=== PATIENT | female | born 1975 | race Caucasian/White ===

== ENCOUNTER 2016-12-02 20:58 | Emergency (ER) | payer OTHER, MEDICAID ==
[~2016-12-02] VITALS: Ht 167.6 cm; Wt 77.1 kg
[~2016-12-02 20:58] MED LIST: ATEN25TA PO; BIPAP INH; BISA10SU PR; DULC10SU2 PR; OXYGEN; SENN8.6T7 PO; SENO8.6T2 PO; TYLE325T5 PO; no home medications
--- NOTE | 2016-12-02 22:40 | REPUSA ---
CLINICAL HISTORY: Edema. COMMENTS: Real time sonography with duplex doppler of the right lower extremity was performed with attention to the major deep venous structures. Evaluation reveals the right common femoral, superficial femoral and popliteal veins to be completely compressible without intraluminal thrombus. There is normal spontaneous phasic flow and augmentation . The greater saphenous/common femoral vein junction is patent. IMPRESSION: No evidence of DVT in right lower extremity. Thank you for your kind referral of this patient.
[2016-12-03 00:18] VITALS: BP 140/90
--- NOTE | 2016-12-03 09:37 | REP ---
RIGHT KNEE: AP and lateral views of the right knee are performed. There is a nondisplaced fracture of the distal femur medially. There is no dislocation. There is a moderate joint effusion. IMPRESSION: Nondisplaced fracture distal femur. Signed by Awais Patterson MD 12/03/2016 03:52 P
== END 2016-12-03 01:38 | disposition home or self-care (01) ==
LOC: EDBD 20:58 → M ED 22:44
DX: M25.461 Effusion, right knee (principal); I47.1 Supraventricular tachycardia; G80.9 Cerebral palsy, unspecified; S72.401A Unspecified fracture of lower end of right femur, initial encounter for closed fracture; X58.XXXA Exposure to other specified factors, initial encounter; Y92.9 Unspecified place or not applicable; Y93.9 Activity, unspecified; Y99.9 Unspecified external cause status; Z79.899 Other long term (current) drug therapy

== ENCOUNTER → 2017-01-06 | Outpatient (CLI) | payer OTHER, MEDICAID ==
--- NOTE | 2017-01-08 14:22 | DEXA ---
AP SPINE L1 - L4 1.219 0.2 -0.1 LT FEMUR TOTAL 0.560 -3.6 -3.5 RT FEMUR TOTAL History of fracture TOTAL BODY TOTAL OTHER DUAL FEMUR FRAX* ASSESSMENT Risk factors: History of adult fracture. 10 year probability of fracture Major osteoporotic fracture 28.1 % Hip fracture 22.6 % COMMENTS: Normal bone densitometry of the spine. There is osteoporosis of the left hip. FOLLOW-UP: Recommendation for the next bone density exam: 2 years. HILDA
== END ==
LOC: M WHC 12:44
DX: M16.11 Unilateral primary osteoarthritis, right hip (principal)

== ENCOUNTER 2018-11-25 10:06 | Inpatient (IN) | payer OTHER, MEDICAID ==
[~2018-11-25] VITALS: Ht 170.2 cm; Wt 85.2 kg
[2018-11-25] VITALS (11 sets, daily range): BP systolic 72–100; BP diastolic 39–61; O2SAT 93
[~2018-11-25 10:06] MED LIST changes: -SENO8.6T2 PO; +SENO8.6T5 PO
[2018-11-25] MEDS ORDERED: IPRATROPIUM 0.5MG/ALBUTEROL 2.5MG INH SOL UD 3ML (DUONEB)(J7620) NEB ONE (11:15)
[2018-11-25 11:33] LABS: BASO % 0.2 % (0.0-1.0); EOS % 0.3 % (0.0-3.0); HEMATOCRIT 49.6 % (36.0-47.0); HEMOGLOBIN 14.9 g/dl (12.0-15.5); LYMPH # 0.3 10^3/uL (1.5-4.5); LYMPH % 3.6 % (24.0-44.0); MEAN CORPUSCULAR HEMOGLOBIN 29.7 pg (27.0-33.0); MEAN CORPUSCULAR VOLUME 98.8 fl (80.0-96.0); MONO # 0.5 10^3/uL (0.0-0.8); MONO % 5.6 % (0.0-5.0); NEUTROPHILS # 8.6 10^3/uL (1.8-7.7); PLATELET COUNT, AUTOMATED 125 10^3/uL (150-450); RED BLOOD COUNT 5.02 10^6/uL (4.00-5.40); WHITE BLOOD COUNT 9.5 10^3/uL (4.0-10.0)
[2018-11-25 11:41] LABS: INR 0.88
[2018-11-25 11:49] LABS: ALBUMIN 3.1 GM/DL (3.2-5.2); ALT/SGPT 84 U/L (12-78); BILIRUBIN,DIRECT < 0.1 MG/DL (0.0-0.2); BILIRUBIN,TOTAL 0.2 MG/DL (0.2-1.0); BLOOD UREA NITROGEN 22 MG/DL (7-18); CALCIUM LEVEL 8.8 MG/DL (8.5-10.1); CARBON DIOXIDE LEVEL 39 MEQ/L (21-32); CHLORIDE LEVEL 99 MEQ/L (98-107); CPK CREATINE PHOSPHOKINASE 54 U/L (26-192); CREATININE FOR GFR 0.43 MG/DL (0.55-1.30); GLOMERULAR FILTRATION RATE > 60.0 (>58); GLUCOSE, FASTING 113 MG/DL (70-100); MB/CK RELATIVE INDEX 7.41 (< OR =4); NT-PRO BNP 123 PG/ML (<125); POTASSIUM SERUM 4.9 MEQ/L (3.5-5.1); SODIUM LEVEL 141 MEQ/L (136-145); THYROXINE (T4) 10.4 UG/DL (4.5-12.0); TOTAL PROTEIN 6.9 GM/DL (6.4-8.2); TROPONIN I < 0.02 NG/ML (< 0.10)
[2018-11-25 11:53] LABS: ABG BASE EXCESS 10.5 (-2.0-2.0); ABG HCO3 45.2 MEQ/L (22.0-26.0); ABG PARTIAL PRESSURE O2 86.2 mmHg (75.0-100.0); ABG STANDARD HCO3 34.2 MEQ/L (22.0-26.0); ABG TOTAL CO2 49.2 MEQ/L (22.0-29.0); ABG pH (ARTERIAL) 7.162 UNITS (7.350-7.450)
[2018-11-25 11:54] LABS: ABG PARTIAL PRESSURE CO2 129.2 mmHg (35.0-45.0)
[2018-11-25] MEDS ORDERED: SENN-23 PO (12:15)
[2018-11-25] MEDS ORDERED: BISA10SU4 PR (12:15)
[2018-11-25] MEDS ORDERED: PIPERACILLIN/TAZOBACTAM SOD 4.5 GM in D5W MINI-BAG PLUS 50 ML IV ONE (13:00)
[2018-11-25 13:34] LABS: ABG BASE EXCESS 8.6 (-2.0-2.0); ABG HCO3 42.5 MEQ/L (22.0-26.0); ABG PARTIAL PRESSURE O2 85.8 mmHg (75.0-100.0); ABG STANDARD HCO3 32.4 MEQ/L (22.0-26.0); ABG TOTAL CO2 46.2 MEQ/L (22.0-29.0)
[2018-11-25 13:42] LABS: ABG pH (ARTERIAL) 7.171 UNITS (7.350-7.450)
[2018-11-25] MEDS ORDERED: VANCOMYCIN HCL 1,000 MG, VIAL MATE ADAPTER 1 EACH in D5W 250 ML IV ONE (14:00)
[2018-11-25] MEDS ORDERED: ALBUTEROL SULFATE 2.5 MG/0.5 ML INH NEB SOLN NEB PRN (14:00)
[2018-11-25] MEDS ORDERED: KCL 20MEQ IN D5/0.45NS 1000ML 1,000 ML IV SCH (14:00)
--- NOTE | 2018-11-25 14:27 | CCN ---
DATE: 11/25/2018 START TIME: 1320 hours STOP TIME: 1356 hours I was asked to attend Eunice Judd here in the ER. Patient has been examined and chart reviewed, and I have spoken at length not only with the ER with but with her father at the bedside. In essence, this is a 42-year-old female with known mental retardation. She has significant chronic hypoxemic and hypercapnic respiratory failure with chronic aspiration. She has a chronically elevated left hemidiaphragm. She is not mobile at home. She has been maintained on noninvasive support intermittently for several years now. Last hospitalization was around 2014. At that time, her baseline CO2 was in the 60s. She was last seen in the outpatient setting by pulmonary about a year ago. At that point in time, noninvasive support was used at bedtime and with naps and with anytime during the day if she seemed to be more sleepy or having involuntary twitching as blood gases were difficult to obtain. Her father says she has been in her usual health until this morning when she was difficult to arouse and was quite cyanotic. He has a pulse ox at home that ready in the 40s. She was brought in by EMS. On arrival, she had a blood gas done that showed pH of 7.162, pCO2 of 129.2, pO2 of 86. She was placed on noninvasive support on her home settings of 23/06. Currently has an FiO2 between 50 and 70%. Repeat blood gas shows pH of 7.17, pCO2 down to 119, and pO2 of 85. When she arrived she was completely unresponsive. At this point, she does open her eyes to voice. He father says this is much more interactive than she was at home, but usually is more interactive than this. Historically he has refused to make any decision regarding intubation, mechanical ventilation or tracheostomy, although he has stated in the past he did not want tracheostomy but refused to make decisions regarding intubation. I discussed again with him today. At this point, he still refuses to give me a decision either way, would like to see how the next several hours go. No obvious fever at home. He says yesterday she was acting her usual self. He thinks that frequently at night she gets her noninvasive mask off at home and that he fears that this is what happened during the night last night. Most recent laboratories show a white blood cell count of 9.5, hemoglobin 14.9, platelet count of 125,000, 90% segs, no bands. Sodium 141, K of 4.9, chloride 99, CO2 39, BUN 22, creatinine 0.43, glucose 113, troponin 0.02, coag studies unremarkable. Chest x-ray shows poor inspiration. I cannot rule out a right hilar infiltrate. Chronically elevated left hemidiaphragm. On exam, she does open her eyes to voice. Blood pressure between 90 and 100 systolic. Heart rate 70s to 80s with a sinus mechanism. Respiratory rate 18-22. Currently moving tidal volumes between 270 and 350 mL on her current noninvasive settings. HEENT: Shows pupils do react. She has a noninvasive mask in place. Trachea is in the midline. Membranes are moist. CHEST: Shows markedly diminished but symmetric expansion. There are some rhonchi. They do not completely clear. Breath sound intensity much more diminished at the left base. CARDIAC EXAM: Distant but regular. Peripheral pulses diminished. ABDOMEN: Obese, soft with active bowel sounds. No masses. EXTREMITIES: Show no obvious cyanosis or clubbing. She has changes of the lower extremities consistent with her being bed ridden. NEUROLOGIC: Opens her eyes to voice, but does not otherwise interact. The most pressing problems requiring my immediate presence at the bedside: 1. Acute on chronic respiratory failure, both hypoxemic and hypercapnic. 2. Question aspiration. 3. Mental disability. At this point, as eluded to above, her father refuses to make a decision regarding further interventions. I will repeat a blood gas in several hours. If it is moving in the right direction then certainly he has once again managed to not have to make a decision. However, if it is any worse I will need an absolute decision from him at that time regarding what he wants me to do regarding intubation and mechanical ventilation. Certainly any decision regarding tracheostomy can be made at a later date. I am in agreement with empiric antimicrobials as well as IV fluids. She will be kept nothing by mouth for now. Her father says she does eat a regular diet for the most part. In view of the above, she is critically ill. Her prognosis is guarded at best. I left the bedside at 1356 hours. 36 minutes of critical care time were delivered at the bedside, not including procedures.
--- NOTE | 2018-11-25 15:00 | REP ---
PORTABLE AP VIEW OF THE CHEST: The present study is compared to that of 09/25/2015. There is a very large left diaphragmatic hernia with large bowel extending up to proximal one-third of the left lung with areas of atelectasis and probably medially. In the right lung, middle lobe is a homogeneous density. The remaining cardiomediastinal structures, lungs, and diaphragm are unremarkable. IMPRESSION: 1. Right middle lobe pneumonia. 2. Large progressive left diaphragmatic hernia as described. Atelectasis of the left lung, particularly in the upper lobe. Electronically Signed by Moris Page MD 11/25/2018 03:37 P
[2018-11-25] MEDS: ALBUTEROL SULFATE 2.5 MG/0.5 ML INH NEB SOLN NEB SCH ×2 (15:19→20:44)
[2018-11-25] MEDS ORDERED: D5W/0.45% SODIUM CHLORIDE 1,000 ML IV SCH (15:36)
[2018-11-25] MEDS ORDERED: ACETAMINOPHEN TAB 650MG DOSE (2X325MG) PO PRN (15:45)
[2018-11-25] MEDS ORDERED: VANCOMYCIN HCL 750 MG, VIAL MATE ADAPTER 1 EACH in D5W 250 ML IV SCH (15:45)
[2018-11-25 16:07] LABS: MAGNESIUM LEVEL 2.3 MG/DL (1.8-2.4)
--- NOTE | 2018-11-25 17:38 | ECGEPIP ---
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
[2018-11-25] MEDS ORDERED: VANCOMYCIN HCL 1,000 MG, VIAL MATE ADAPTER 1 EACH in D5W 250 ML IV SCH (18:00)
[2018-11-25] MEDS ORDERED: INFLUENZA QUADRIVALENT PF VACCINE 0.5ML SYRINGE (90686) IM PRN (18:15)
[2018-11-25 18:22] LABS: ABG BASE EXCESS 7.9 (-2.0-2.0); ABG HCO3 38.1 MEQ/L (22.0-26.0); ABG O2 SATURATION 87.9 % (95.0-99.0); ABG STANDARD HCO3 31.4 MEQ/L (22.0-26.0); ABG TOTAL CO2 40.6 MEQ/L (22.0-29.0); ABG pH (ARTERIAL) 7.293 UNITS (7.350-7.450)
[2018-11-25 18:23] LABS: ABG PARTIAL PRESSURE CO2 80.5 mmHg (35.0-45.0)
[2018-11-25] MEDS ORDERED: NS 500 ML IV ONE (20:00)
[2018-11-25] MEDS ORDERED: PIPERACILLIN/TAZOBACTAM SOD 4.5 GM in D5W MINI-BAG PLUS 50 ML IV SCH (20:00)
--- NOTE | 2018-11-25 21:07 | HPE ---
DATE OF ADMISSION: 11/25/2018 PRIMARY CARE PROVIDER: Dr. Rabia Waddell at [facility] PREPRESS OPERATOR: Dr. Hutchinson MACHINE OPERATORS: Dr. Monroe HISTORY OF PRESENT ILLNESS: Ms. Judd is a 42-year-old female with cerebral palsy and mental retardation since she was 1 years old after she had strep infection that led to cognitive and physical decline. Her father is in the room. Currently, at the time of admission, the patient is obtunded more so than her baseline, per her father, and most of the information is provided by her father, who is her primary external grinder tool at home. 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 As of this morning, when the father awoke, he found his daughter appearing hypoxic and blue with the BiPAP only covering the edge of her mouth and she had essentially pulled apart the machinery with it. She was nonresponsive and apparently her pulse oximetry was at 40% at home. He called emergency medical services (EMS) and her oxygen levels pablo to the 90s after being placed on oxygen. Currently in the emergency room, her initial ABG revealed severe hypercapnia with a PCO2 of 129 and a pH of 7.1. Emergency room spoke with project development manager, Dr. Child, who placed her on BiPAP and repeat ABG improved mildly to pH of 7.1 and PCO2 of 119. Per emergency room report, there was no plan to intubate the patient and pulmonology wanted to continue monitoring in intensive care unit (ICU) on BiPAP. Of note, her respiratory panel in the emergency room was also positive for respiratory syncytial virus (RSV), as well as a chest x-ray revealing right middle lobe pneumonia and a large left diaphragmatic hernia and atelectasis of the left upper lung. At the time of the admission, per the father, she is currently slightly more awake than she was at home but currently still not at her baseline, which consists of responding to her name and able to track visually who is speaking with her. She will be admitted to the intensive care unit (ICU) with close monitoring. PAST MEDICAL HISTORY: 1. Chronic hypoxic respiratory failure, chronically on 2 liters nasal cannula. 2. Cerebral palsy since age 1 secondary to strep infection. 3. SVT, follows with Dr. Hutchinson. 4. Chronic decubitus ulcer, status post flap closure. 5. History of aspiration pneumonia. HOME MEDICATIONS: - Tylenol - atenolol 25 mg by mouth at night - bisacodyl ALLERGIES: None. SOCIAL HISTORY: She is mentally retarded and lives at home under the care of her father. No active tobacco or alcohol use. REVIEW OF SYSTEMS: Unobtainable given the patient's obtunded and lethargic state and baseline mental retardation; however, the father says the patient has had rhinorrhea and "tickle" in her throat over the past few days, and obtunded as of this morning. PHYSICAL EXAMINATION: VITAL SIGNS: Temperature 97, pulse 76, respirations 18, blood pressure 100/61, MAP of 74, pulse oximetry 90% on BiPAP with an FiO2 of 80 and an IPAP/EPAP of 20/8. GENERAL: Resting comfortably in bed. Is lethargic, nonverbal. Is able to open her eyes to sternal rub. Otherwise, limited interaction and unable to participate in physical examination. HEENT: Normocephalic, atraumatic. No pharyngeal exudates or edema. NECK: Supple without any appreciable jugular venous distention (JVD). CARDIAC: Regular rate and rhythm. No appreciable murmurs. LUNGS: Diffuse rhonchi throughout. No appreciable rales. There is poor inspiratory effort. She is currently on BIPAP. ABDOMEN: Obese, nontender, nondistended. Benign examination. EXTREMITIES: The patient has clawing of her digits of bilateral hands, as well as puffiness of bilateral feet, which her father states is chronic due to her being bed ridden. No appreciable peripheral edema. LABORATORIES: WBC 9.5, hemoglobin and hematocrit 14.9 and 49.6, platelets 125. Electrolytes normal. BUN and creatinine 22 and 0.43, lactic acid 0.9, AST and ALT 46/84, alkaline phosphatase 148. Cardiac markers negative. TSH 1.1. ABG on admission showed pH 7.162 and up to 7.171 after 3 hours on BiPAP, PCO2 on admission 129, down to 119 after 3 hours of BiPAP. Blood cultures pending. Respiratory panel positive for RSV. Chest x-ray reveals right middle lobe pneumonia and large left diaphragmatic hernia with bowel extending up to proximal one-third of the left lung, along with atelectasis. ASSESSMENT AND PLAN: 1. Respiratory. The patient is in acute on chronic respiratory failure with hypercarbia and hypoxia. The patient, at baseline, is on 2 liters nasal cannula during the daytime and BiPAP at night. She was noted to be saturating in the 40s, per father, and severe hypercapnic on admission ABG. This is likely multifactorial secondary to noncompliance with BiPAP, as she had pulled off her mask overnight. Also, likely secondary to positive RSV, as well as positive pneumonia on admission. Pulmonary consulted, appreciated Dr. Child's input. Currently, he would like to continue monitoring on BiPAP and repeat ABGs. We will start her on ceftriaxone and azithromycin and treat as community acquired pneumonia, given her infiltration on imaging, as well as father mentioning that she has had a dry cough and rhinorrhea over the past days, as well as her being a high risk patient and bedridden. Continue close monitoring. Of note, the patient was intubated in 2013 due to similar presentation. In the emergency room during this admission, I personally spoke with the father, who has some reservations about intubating her again. Currently, she is still a FULL CODE. However, the father is undecided if he would like to proceed with intubation. Ultimately, he did understand that if need be overnight and Ms. Judd declines, she may require intubation, which we will proceed with unless he tells us otherwise as her healthcare proxy. He relayed understanding and is okay with intubation at this point. The patient does have a history of aspiration pneumonia. We will place her on aspiration precautions and currently make her nothing by mouth. 2. Infectious disease. The patient has right middle lobe pneumonia on imaging, positive RSV on respiratory panel. Currently, blood cultures are pending, as well as methicillin resistant Staphylococcus aureus (MRSA) screen. We will treat her with ceftriaxone and azithromycin and monitor for improvement. 3. Cardiac. The patient was noted to initially present normotensive; however, in the emergency room, over time, she became hypotensive with blood pressure 80s over 50s. We will start her on IV fluids and monitor overnight. This is likely secondary to her acutely ill state. If she does not improve with fluids, she will need a central line and start on pressors. Of note, she is not tachycardic at this point, there are no acute signs of sepsis per laboratories and vitals. We will continue closely monitoring. She does have a Hx of SVTs for which she follows with Dr. Hutchinson. Currently stable. 4. Neurologic. The patient is encephalopathic, likely secondary to her acute hypoxic and hypercapnic state. At baseline, she does have intellectual disability due to her cerebral palsy; however, per the father, she is able to recognize him and respond to her name at baseline, which she is not doing at the time of admission. Continue monitoring for improvement as we treat the aforementioned problems. Given her altered mentation currently, we will place her as nothing by mouth and hydrate with IV fluids. As she improves, consider speech and swallow evaluation, as well as physical therapy (PT) if she is able to tolerate. 5. Gastrointestinal. Of note, the patient does have elevated AST, ALT and decreased albumin and decreased PT on admission. It appears that she has had trends of highs and lows of these values in the past. Currently, the etiology is unclear, but may be secondary to her acutely infectious and hypotensive state. We will continue monitoring. If no improvement, we will consider getting further workup. 5. Deep vein thrombosis (DVT) prophylaxis. Lovenox subcutaneously. DISPOSITION: We will admit to the hospitalist service, pulmonary consulted. Closely monitor in the intensive care unit (ICU). Is FULL CODE. My faculty preceptor for this patient encounter was physically present during the encounter and was fully available. All aspects of the patient interview, examination, medical decision making process, and medical care plan development were reviewed and approved by the faculty preceptor. The faculty preceptor is aware and concurs with the plan as stated in the body of this note and will attest to such by his/her co-signature. I have both independently examined this patient as well as reviewed the H&P. I have discussed in detail with the resident the findings and plan of treatment as documented in the resident's note- MD HILDA Valenzuela
[2018-11-25] MEDS: ENOXAPARIN 40 MG/0.4 ML SYRINGE (J1650) SC SCH (21:12)
[2018-11-25] MEDS: cefTRIAXone SOD 2 GM in D5W MINI-BAG PLUS 50 ML IV SCH (21:12)
[2018-11-25] MEDS: AZITHROMYCIN INJ 500 MG, VIAL MATE ADAPTER 1 EACH in D5W 250 ML IV SCH (21:46)
[2018-11-26] VITALS (46 sets, daily range): BP systolic 68–131; BP diastolic 44–86; O2SAT 94–95
[2018-11-26] MEDS: ALBUTEROL SULFATE 2.5 MG/0.5 ML INH NEB SOLN NEB SCH ×6 (04:00→20:05)
[2018-11-26 04:20] LABS: HEMATOCRIT 47.5 % (36.0-47.0); HEMOGLOBIN 14.4 g/dl (12.0-15.5); MEAN CORPUSCULAR HEMOGLOBIN 29.4 pg (27.0-33.0); MEAN CORPUSCULAR HGB CONC 30.3 g/dl (32.0-36.5); MEAN CORPUSCULAR VOLUME 97.1 fl (80.0-96.0); RED BLOOD COUNT 4.89 10^6/uL (4.00-5.40); WHITE BLOOD COUNT 8.1 10^3/uL (4.0-10.0)
[2018-11-26 04:33] LABS: PLATELET COUNT, AUTOMATED 92 10^3/uL (150-450)
[2018-11-26 04:35] LABS: BLOOD UREA NITROGEN 26 MG/DL (7-18); CALCIUM LEVEL 8.3 MG/DL (8.5-10.1); CARBON DIOXIDE LEVEL 33 MEQ/L (21-32); CHLORIDE LEVEL 100 MEQ/L (98-107); GLOMERULAR FILTRATION RATE > 60.0 (>58); GLUCOSE, FASTING 162 MG/DL (70-100); POTASSIUM SERUM 5.6 MEQ/L (3.5-5.1); SODIUM LEVEL 136 MEQ/L (136-145)
[2018-11-26] MEDS ORDERED: D5W/0.45% SODIUM CHLORIDE 1,000 ML IV SCH (05:15)
[2018-11-26 06:07] LABS: ABG BASE EXCESS 4.9 (-2.0-2.0); ABG HCO3 33.1 MEQ/L (22.0-26.0); ABG O2 SATURATION 97.9 % (95.0-99.0); ABG PARTIAL PRESSURE O2 96.4 mmHg (75.0-100.0); ABG STANDARD HCO3 28.9 MEQ/L (22.0-26.0); ABG TOTAL CO2 35.1 MEQ/L (22.0-29.0); ABG pH (ARTERIAL) 7.326 UNITS (7.350-7.450)
[2018-11-26 06:08] LABS: ABG PARTIAL PRESSURE CO2 64.8 mmHg (35.0-45.0)
[2018-11-26] MEDS: NS 1,000 ML IV SCH ×2 (08:16→17:22)
[2018-11-26] MEDS: NYSTATIN 100,000 UNITS/GM TOPICAL PWD 15 GM TOP SCH ×2 (08:17→20:40)
[2018-11-26 09:14] LABS: ALBUMIN 2.4 GM/DL (3.2-5.2); BILIRUBIN,DIRECT 0.1 MG/DL (0.0-0.2); BILIRUBIN,TOTAL 0.3 MG/DL (0.2-1.0); TOTAL PROTEIN 5.9 GM/DL (6.4-8.2)
--- NOTE | 2018-11-26 09:58 | CCN ---
DATE: 11/26/2018 START TIME: 847 STOP TIME: 921 I again attended Ms. Judd here in the intensive care unit. Patient has been examined and chart reviewed and I spoke at length with her father at the bedside. Maximum temperature (T-max) overnight 98.5, blood pressure upper 60s to the 120s. Heart rate remains 60-90 with a sinus mechanism. Respiratory rate generally in the 20s without accessory muscle use. She has received a little over 2 liters in. Total out somewhat inaccurate as she is incontinent. She is much more awake and alert this morning. Her father reports that this is much more her baseline. Most recent laboratories show a blood gas done on her home noninvasive settings of inspiratory pressure 20, expiratory pressure of 8, rate of 8 and FiO2 currently 60%, pH of 7.326, pCO2 64.8, pO2 96.4. Sodium 136, potassium of 5.6, chloride 100, CO2 33, BUN 26, creatinine 0.6. Lactate yesterday 0.9. White blood cell count 8.1, hemoglobin 14.4, platelet count 92,000. No differential this morning. On exam, she is awake and interactive and follows all motions in the room. She appears comfortable. Vital signs as above. Mucous membranes are moist. Trachea is in the midline. Chest shows fairly clear anteriorly with reasonable air entry. Diminished at the bases. Occasional rhonchus. No rubs. Cardiac exam distant but regular. Peripheral pulses diminished but palpable. Abdomen remains obese, soft with active bowel sounds. No hepatosplenomegaly or masses. Extremities show no cyanosis or clubbing. Neurologically, she is much more awake. Respiratory syncytial virus (RSV) is positive by nasal swab. Blood cultures pending. Most pressing problems requiring my presence at the bedside: 1. Acute on chronic respiratory failure with both hypoxemic and hypercapnic. 2. Positive respiratory syncytial virus (RSV). 3. Question pneumonia. 4. Mental retardation. 5. Obstructive sleep apnea syndrome on home BiPAP. At this point, given the improvement in her mental status, as well as her blood gas, will allow her to be on and off her BiPAP. She can have some liquids today. Will continue her current antimicrobials. We will use supplemental oxygen as needed. She is on deep venous thrombosis prophylaxis. Her father has yet to make a definitive decision regarding code status, especially now in view of her improvement. He continues to delay that decision. At some point, it will again come to the point where a definitive word will be needed from him and we will have to address it at that time. For now we will continue as outlined above. I left the bedside at 0922 hours. 34 minutes of critical care time at the bedside not including procedures.
[2018-11-26] MEDS ORDERED: SODIUM CHLORIDE 0.9% 1000ML IV ONE (16:45)
[2018-11-26] MEDS: cefTRIAXone SOD 2 GM in D5W MINI-BAG PLUS 50 ML IV SCH (19:31)
[2018-11-26] MEDS: ENOXAPARIN 40 MG/0.4 ML SYRINGE (J1650) SC SCH (20:39)
[2018-11-26] MEDS: AZITHROMYCIN INJ 500 MG, VIAL MATE ADAPTER 1 EACH in D5W 250 ML IV SCH (20:39)
[2018-11-27] VITALS (45 sets, daily range): BP systolic 87–181; BP diastolic 51–115; O2SAT 95–96
[2018-11-27] MEDS: NS 1,000 ML IV SCH ×2 (00:02→06:31)
[2018-11-27] MEDS: ALBUTEROL SULFATE 2.5 MG/0.5 ML INH NEB SOLN NEB SCH ×6 (00:18→20:14)
--- NOTE | 2018-11-27 01:08 | IPN ---
DATE OF SERVICE: 11/26/2018 SUBJECTIVE: The patient is seen and examined at bedside. No reported events overnight. She appears to be improving as of this morning. Per the father, she is nearing her baseline although not fully there yet. She continues on bilevel positive airway pressure (BiPAP) and her arterial blood gas (ABG) as of this morning have improved. She continues to have episodic hypotensive episodes as well and is continued on intravenous (IV) fluids. PHYSICAL EXAMINATION: VITAL SIGNS: Temperature 98.5, pulse is 90, respirations are 27, blood pressure 127/67, mean arterial pressure (MAP) of 87, pulse oximetry 95% on bilevel positive airway pressure (BiPAP) with an FiO2 of 80. GENERAL: Resting comfortably in bed. Is awake and able to track people in the room. Is much less lethargic from admission. Is minimally verbal, however per the father this is near her baseline given her cerebral palsy. HEENT: Normocephalic, atraumatic. Extraocular muscles intact. Neck supple without any appreciable jugular venous distention (JVD). No conjunctival pallor. Moist mucous membranes. CARDIAC: Regular rate and rhythm. No appreciable murmurs. Distant heart sounds. RESPIRATORY: Diffuse rhonchi throughout that are much improved compared to admission. No appreciable rales. She continues on bilevel positive airway pressure (BiPAP). ABDOMEN: Obese, nontender, benign overall. EXTREMITIES: She has chronic clawing of her digits of bilateral hands and chronic puffiness of bilateral feet. LABORATORIES: White blood cell (WBC) 8.1, hemoglobin and hematocrit (H and H) 14.4 and 47.5, platelets 92. Sodium 136, potassium 5.6 that improved to 4.7 on recheck, BUN/creatinine 26 and 0.6. Liver panel: Normal. Arterial blood gas (ABG): This morning pH 7.326, pCO2 64, PO2 96. Blood cultures negative at 24 hours. Respiratory panel: Positive respiratory syncytial virus (RSV). Methicillin-resistant Staphylococcus aureus (MRSA) screen: Pending. IMAGING: No new imaging for today. IMPRESSION AND PLAN: 1. Acute on chronic respiratory failure with hypercapnia and hypoxia. She is much improved today from admission as noted by her arterial blood gas (ABG) as well as her increased mentation which is close to baseline today per her father in the room. She is chronically on 2 liters of nasal cannula; however, continues on bilevel positive airway pressure (BiPAP) today. Pulmonary is consulted. Appreciate Dr. Child's input. Continue supportive care for the respiratory syncytial virus (RSV); however there was also positive right middle lobe infiltrate on imaging which are likely contributing to her respiratory failure as well as the underlying issue of noncompliance which is chronic for her from pulling off her bilevel positive airway pressure (BiPAP) machine at home. She continues on ceftriaxone and azithromycin and is closely monitored in intensive care unit (ICU). She continues on aspiration precautions and nothing by mouth with fluid hydration in the meanwhile. 2. Hypotension. Ms. Judd continues to have hypotensive episodes throughout the night. We will increase her intravenous (IV) fluid rate and bolus as needed. Maintain a mean arterial pressure (MAP) above 65. She does not meet any sepsis criteria and it appears that her hypotension is likely related to her acutely infectious state. Continue monitoring. She appears to be doing well with increased intravenous (IV) fluids. If she does not improve we will consider a central line with pressors. I discussed this with her father and he is in agreement with starting pressors if needed. 3. Encephalopathy likely multifactorial given her acute hypoxia and hypercapnia as well as underlying cerebral palsy and acutely infectious states with the pneumonia and respiratory syncytial virus (RSV). She appears to be clinically improved today and is more awake and alert, close to her baseline per her father. Continue treating underlying problems and monitor for improvement. As she improves she will likely require speech and swallow evaluation and physical therapy (PT), if tolerable. There are concerns for aspiration currently. 4. Hyperkalemia. Potassium is 5.6 overnight which improved to 4.7 after fluid changes. Continue on with normal saline. 5. Transaminitis. On admission, Ms. Judd had abnormal liver function tests (LFTs) which appear to have normalized this morning. Initial abnormality was likely secondary to her acutely infectious state and hypotensive episodes. 6. History of supraventricular tachycardias (SVTs). Currently stable. Normally follows with Dr. Hutchinson. 7. Chronic decubitus ulcer status post flap closure. 8. History of aspiration pneumonia. Deep vein thrombosis (DVT) prophylaxis: Lovenox subcutaneous. DISPOSITION: Continue close monitoring in the intensive care unit (ICU) and bilevel positive airway pressure (BiPAP) weaning trials as per pulmonology. My preceptor for the patient encounter was Tosin Vidal MD. The preceptor was physically present in the building during the encounter and was fully available as needed. All aspects of the patient interview, examination, medical decision-making process, and medical care plan development were reviewed and approved by the preceptor. The preceptor is aware and concurs with the plan as stated in the body of this note and will attest to such by his/her co-signature.
[2018-11-27 04:52] LABS: HEMATOCRIT 39.6 % (36.0-47.0); HEMOGLOBIN 12.4 g/dl (12.0-15.5); MEAN CORPUSCULAR HGB CONC 31.3 g/dl (32.0-36.5); MEAN CORPUSCULAR VOLUME 95.7 fl (80.0-96.0); RED BLOOD COUNT 4.14 10^6/uL (4.00-5.40); WHITE BLOOD COUNT 11.7 10^3/uL (4.0-10.0)
[2018-11-27 05:09] LABS: BLOOD UREA NITROGEN 19 MG/DL (7-18); CALCIUM LEVEL 8.4 MG/DL (8.5-10.1); CARBON DIOXIDE LEVEL 32 MEQ/L (21-32); CHLORIDE LEVEL 104 MEQ/L (98-107); CREATININE FOR GFR 0.38 MG/DL (0.55-1.30); GLOMERULAR FILTRATION RATE > 60.0 (>58); GLUCOSE, FASTING 71 MG/DL (70-100); SODIUM LEVEL 140 MEQ/L (136-145)
[2018-11-27 05:35] LABS: PLATELET COUNT, AUTOMATED 90 10^3/uL (150-450)
[2018-11-27] MEDS: NYSTATIN 100,000 UNITS/GM TOPICAL PWD 15 GM TOP SCH ×2 (09:00→21:20)
[2018-11-27] MEDS: BISACODYL 10 MG SUPP PR SCH ×2 (09:00→20:32)
[2018-11-27] MEDS: SENNA 8.6 MG TAB (SENOKOT) PO SCH ×2 (09:00→20:36)
[2018-11-27] MEDS ORDERED: FUROSEMIDE 40 MG/4 ML VIAL (J1940) IV ONE (09:30)
--- NOTE | 2018-11-27 11:22 | IPNPDOC ---
Subjective Date Seen The patient was seen on 11/27/18. Subjective Chief Complaint/HPI Patient seen and examined at the bedside. She has remained hemodynamically stable overnight. She has failed weaning off of BiPAP this morning, and has been transitioned to Vapotherm as per pulmonary. The patient was given a dose of IV Lasix this morning due to anasarca from IV fluid hydration over the last several days. The patient's mentation has returned back to her baseline according to her father was at the bedside. We will continue to monitor the patient at this time. Objective Physical Examination General Exam: Positive: Alert, No Acute Distress ENT Exam: Positive: Atraumatic Chest Exam: Positive: Diminished, Other (faint bibasilar crackles noted on auscultation.) Heart Exam: Positive: Tachycardic, Normal S1, Normal S2 Telemetry: Positive: Sinus Abdomen Exam: Positive: Other (mild distention of the abdomen noted, tympanic on percussion); Negative: Tenderness Extremity Exam: Positive: Other (2+ pitting edema in the lower extremities b/l); Negative: Tenderness Assessment /Plan Plan/VTE VTE Prophylaxis Ordered?: Yes Plan Acute on Chronic Respiratory Failure with Hypercapnia and Hypoxia 2/2 RSV, CAP The patient's mentation has returned back to baseline according to her father who is at the bedside. However, she has failed off of BiPAP this morning, and has been transitioned to a trial of Vapotherm as per Pulmonary Cont Azithro and Rocephin Patient did have some lower extremity edema and some crackles at the bases this AM IV Lasix dose ordered We will cont to monitor the patient's respiratory status Hypotension, resolved s/p IVF Hydration Encephalopathy likely 2/2 above, resolved Transaminitis likely 2/2 above, resolved History of supraventricular tachycardias (SVTs) Follows with Dr. Hutchinson as outpatient Chronic decubitus ulcer status post flap closure. History of aspiration pneumonia. Hx of Cerebral Palsy Complicating Medical Care Constipation Senokot ordered for when the patient clears bedside swallow eval Dulcolax suppository ordered Deep vein thrombosis (DVT) prophylaxis Lovenox subcutaneous Dispo--pending clinical improvement VS, I&O, 24H, Fishbone Vital Signs/I&O Vital Signs Date Time Temp Pulse Resp B/P (MAP) Pulse Ox O2 Delivery O2 Flow Rate FiO2 11/27/18 09:53 85 40.0 100 11/27/18 03:52 BIPAP/CPAP 11/27/18 03:30 100 25 106/60 (75) 11/27/18 00:00 97.0 I&O- Last 24 Hours up to 6 AM 11/27/18 05:59 Intake Total 2992.5 ml Output Total 830 ml Balance 2162.5 ml Laboratory Data 24H LABS Laboratory Tests 2 11/27/18 04:15: Nucleated Red Blood Cells % (auto) 0.0, Immature Platelet Fraction 7.7, Anion Gap 4L, Glomerular Filtration Rate > 60.0, Blood Urea Nitrogen 19H, Creatinine 0.38L, Sodium Level 140, Potassium Level 4.0, Chloride Level 104, Carbon Dioxide Level 32, Calcium Level 8.4L CBC/BMP Laboratory Tests 11/27/18 04:15 Red Blood Count 4.14, Mean Corpuscular Volume 95.7, Mean Corpuscular Hemoglobin 30.0, Mean Corpuscular Hemoglobin Concent 31.3 L, Red Cell Distribution Width 13.2, Calcium Level 8.4 L Microbiology Microbiology 11/25/18 Blood Culture - Preliminary, Resulted No growth after 24 hours . All specim... 11/25/18 Blood Culture - Preliminary, Resulted No Growth after 48 hours. All Specime... 11/25/18 MRSA Screen - Final, Complete 11/25/18 Respiratory Virus Panel (PCR) ([facility]) - Final, Complete Respiratory Syncytial Virus ALIRIO RENTERIA MD Nov 27, 2018 11:22
[2018-11-27] MEDS: METOPROLOL 5 MG/5 ML VIAL IV PRN ×3 (13:21→18:30)
[2018-11-27] MEDS ORDERED: SODIUM CHLORIDE 0.9% 1000ML IV ONE (18:15)
[2018-11-27] MEDS: cefTRIAXone SOD 2 GM in D5W MINI-BAG PLUS 50 ML IV SCH (20:22)
[2018-11-27] MEDS: AZITHROMYCIN INJ 500 MG, VIAL MATE ADAPTER 1 EACH in D5W 250 ML IV SCH (21:20)
[2018-11-27] MEDS: ENOXAPARIN 40 MG/0.4 ML SYRINGE (J1650) SC SCH (21:20)
[2018-11-28] VITALS (27 sets, daily range): BP systolic 105–156; BP diastolic 57–87; O2SAT 94–95
[2018-11-28] MEDS: ALBUTEROL SULFATE 2.5 MG/0.5 ML INH NEB SOLN NEB SCH ×7 (00:23→23:48)
[2018-11-28 04:49] LABS: HEMATOCRIT 40.6 % (36.0-47.0); HEMOGLOBIN 12.3 g/dl (12.0-15.5); MEAN CORPUSCULAR HEMOGLOBIN 29.6 pg (27.0-33.0); MEAN CORPUSCULAR HGB CONC 30.3 g/dl (32.0-36.5); MEAN CORPUSCULAR VOLUME 97.6 fl (80.0-96.0); PLATELET COUNT, AUTOMATED 104 10^3/uL (150-450); RED BLOOD COUNT 4.16 10^6/uL (4.00-5.40); WHITE BLOOD COUNT 8.8 10^3/uL (4.0-10.0)
[2018-11-28 05:13] LABS: BLOOD UREA NITROGEN 17 MG/DL (7-18); CALCIUM LEVEL 8.5 MG/DL (8.5-10.1); CARBON DIOXIDE LEVEL 29 MEQ/L (21-32); CHLORIDE LEVEL 103 MEQ/L (98-107); CREATININE FOR GFR 0.44 MG/DL (0.55-1.30); GLOMERULAR FILTRATION RATE > 60.0 (>58); GLUCOSE, FASTING 52 MG/DL (70-100); SODIUM LEVEL 140 MEQ/L (136-145)
[2018-11-28] MEDS ORDERED: DEXTROSE 50% 50 ML SYRINGE IV STA (05:34)
[2018-11-28] MEDS ORDERED: GLUCAGON FOR INJ 1 MG VIAL (J1610) SC PRN (07:30)
[2018-11-28] MEDS ORDERED: GLUCOSE 4 GM CHEW TABLET PO PRN (07:30)
[2018-11-28] MEDS ORDERED: DEXTROSE 50% 50 ML SYRINGE IV PRN (07:30)
[2018-11-28] MEDS: SENNA 8.6 MG TAB (SENOKOT) PO SCH ×2 (08:06→22:08)
[2018-11-28] MEDS: NYSTATIN 100,000 UNITS/GM TOPICAL PWD 15 GM TOP SCH ×2 (08:07→22:09)
[2018-11-28] MEDS: BISACODYL 10 MG SUPP PR SCH ×3 (08:07→22:08)
--- NOTE | 2018-11-28 10:32 | CCN ---
DATE OF VISIT: 11/28/2018 TIME OF VISIT: 0940 I again attended Eunice Judd in the intensive care unit. The patient has been examined and the chart reviewed and I spoke at length with her father who is at the bedside. T-max overnight 100.1, blood pressure 100-120 systolic, heart rate 90s and occasionally to the 120s, respiratory rate generally in the teens to the low 20s without accessory muscle use. During the night, she did have increase in her FiO2 requirements and was 50% while sleeping, but is back down to 30-35% FiO2, but remains on noninvasive support. Ins and outs midnight to midnight 1380 mL in with 1750 mL out. White blood cell count down to 8.8, hemoglobin 12.3 and platelet count 104,000. Sodium 140, potassium 4.0, chloride 103, CO2 29, BUN 17, creatinine 0.44. On exam, she is much more awake and interactive today. Pupils do react, sclerae are clear. Chest shows better air entry in the right chest. There are some rhonchi that clear with cough. Diminished at the bases, right greater than left. Cardiac exam is tachycardic, but regular. Peripheral pulses are diminished, but palpable. Abdomen obese, soft, with active bowel sounds. Extremities again show changes in the lower extremities consistent with her non-mobile status. She does move the upper extremities. Neurologically as outlined above. IMPRESSION: 1. Acute on chronic respiratory failure, both hypoxemic and hypercapnic. 2. Obstructive sleep apnea. 3. Suspect aspiration. 4. Mental disability. At this point, will continue to try to wean her during the day from noninvasive support. She is much more alert. Her weak cough presents a problem. Her father has yet to make a definitive decision regarding code status and intubation if it came to that. I understand the primary service may start a low dose beta tracy to help with her tachycardia as that seems to be the predominant issue that actually requires her being back on noninvasive support for the most part. She has been able to hold her oxygenation status a little better. If she is not able to remain off noninvasive support, then the question of nutrition will come to the forefront and I will defer this to her primary service. She will be followed closely while she is here in the hospital. Further recommendations will be made in the progress record as new information becomes available.
[2018-11-28] MEDS: METOPROLOL 5 MG/5 ML VIAL IV SCH ×2 (10:50→15:43)
--- NOTE | 2018-11-28 14:50 | IPN ---
DATE OF SERVICE: 11/28/2018 The patient is examined at bedside. She continues to be tachycardic with heart rate sustained in the 120s. She failed again a trial of weaning off of bilateral positive airway pressure (BiPAP) and attempting Vapotherm. This morning, she is back on continuous BiPAP per pulmonary. She continues to have episodic hypotension and still appears anasarcic requiring Lasix dose yesterday. She also had an episode of hypoglycemia overnight, thus requiring D5 supplementation. Otherwise, no other issues. She was noted to be more alert and interactive, essentially back to her baseline today. . PHYSICAL EXAMINATION: VITAL SIGNS: Temperature 100.1, pulse 121, respirations 22, blood pressure (BP) 105/70, mean arterial pressure (MAP) of 82, pulse oximetry 97% on BiPAP with an FIO2 of 45. GENERAL: She is resting comfortably in bed. On BiPAP. She is awake and alert. Is able to say hi back and shake her hands when greeted. Is essentially back to her baseline, given her cerebral palsy. HEENT: Normocephalic, atraumatic. Extraocular muscles intact. Neck is supple. Jugular venous distention (JVD) is difficult to assess, given her body habitus. No conjunctival pallor. Moist mucous membranes overall. CARDIAC: She is tachycardic, irregular rhythm. Distant heart sounds. No appreciable murmurs. RESPIRATORY: Rhonchi have improved from admission. She continues on BiPAP. Equal breath sounds bilaterally. ABDOMEN: Is obese, nontender. Is softer from previous days. EXTREMITIES: She has chronic clawing of her digits of bilateral hands, chronic puffiness in bilateral feet. Has 1+ pitting edema bilateral lower extremities. LABORATORIES: White blood cell (WBC) 8.8, hemoglobin and hematocrit (H and H) 12.3 and 40.6, platelets 104. Electrolytes normal. BUN and creatinine 18 and 0.044. IMPRESSION AND PLAN: 1. Acute on chronic respiratory failure with hypercapnia and hypoxia. She continues to fail BiPAP weaning trials and was not able to tolerate Vapotherm and is now back on BiPAP as of today. She is not in any respiratory distress. We will continue her on ceftriaxone and azithromycin for her community-acquired pneumonia and continue supportive care for her respiratory syncytial virus (RSV). Pulmonary is following and adjusting her BiPAP. Continue close monitoring in the intensive care unit (ICU). The patient's noncompliance with BiPAP is a chronic issue, which will be difficult to tackle, given her baseline cerebral palsy. 2. Tachycardia. Her heart rate remains in the 120s even at rest. Normally, at home, she is on atenolol. However, she is unable to tolerate by mouth intake at this time. We will start her on IV Lopressor with hold parameters. Continue monitoring. 3. Hypotension. She continues to have episodic hypotension, which improves with intravenous (IV) fluids. However, given her hypervolemic status, we will avoid giving any additional fluid hydration. Monitor intake and output and maintain MAP of above 65. 4. Encephalopathy, resolved, status post continuous BiPAP since admission, as well as treating her acutely infectious states. She is back to her baseline. She has been noted to do well with her swallowing this morning, and we will attempt to advance her diet from nothing by mouth to liquids. There is a concern for aspiration. We will consider speech and swallow evaluation and physical therapy (PT) if tolerable. 5. History of supraventricular tachycardia (SVT). Currently stable. Normally follows with Dr. Hutchinson outpatient. 6. Chronic decubitus ulcer, status post flap closure. 7. History of aspiration pneumonia. 8. History of cerebral palsy. Is currently at her baseline mentation. Complicates medical care and compliance. 9. Deep vein thrombosis (DVT) prophylaxis. Lovenox subcutaneous. DISPOSITION: Continue close monitoring in ICU, BiPAP per pulmonary. My faculty preceptor for this patient encounter was physically present during the encounter and was fully available. All aspects of the patient interview, examination, medical decision-making process, and medical care plan development were reviewed and approved by the faculty preceptor. The faculty preceptor is aware and concurs with the plan as stated in the body of this note and will attest to such by his/her cosignature.
[2018-11-28] MEDS ORDERED: SENOKOT S TAB PO PRN (18:30)
[2018-11-28] MEDS: cefTRIAXone SOD 2 GM in D5W MINI-BAG PLUS 50 ML IV SCH (19:44)
--- NOTE | 2018-11-28 21:26 | ECHO ---
DATE OF PROCEDURE: 11/28/2018 REFERRING PHYSICIAN: Dr. Vidal INDICATION: Edema. Height 170 cm, weight 89 kg. DIMENSIONS: IVS: 1.1 LV: 2.9 LVPW: 0.9 LA: 2.6 Aorta: 3.0 E prime septal: 10.8 E prime lateral: 10.6 FINDINGS: The study is of extremely limited technical quality with very limited visualization. Apparently only supine exam was possible to be performed. The patient is tachycardic with heart rate around 110 beats per minute. Left ventricle was poorly visualized. It is grossly of normal size. I estimate probably normal systolic function, but the visualization was very poor and I cannot be certain. Right ventricle was virtually not seen at all. Both atria also appear grossly normal based on very limited visualization. Aortic, mitral and tricuspid valves were reasonably well seen and appear normal. Pulmonic valve surprisingly was also unusually well seen and appears normal. No pericardial effusion is noted. Inferior vena cava was not seen. Aortic root and was seen only very marginally but appears normal. Aortic arch and abdominal aorta were not seen. Doppler interrogation reveals no aortic and mitral stenosis or insufficiency. There is mild tricuspid insufficiency. Quality of TR jet was not sufficient to adequately estimate pulmonary artery pressure. Pulmonic valve was functionally competent. Evaluation of diastolic function was not completed because there was no documentation of mitral inflow velocities. Tissue Doppler velocities of mitral annulus, though, are preserved, so I assume that the diastolic function might be preserved as well. CONCLUSIONS: 1. Study is of markedly limited technical quality. 2. Normal left ventricular (LV) size with probably normal or near normal LV systolic function. Because of limitation of the study, I cannot rule out segmental wall motion abnormalities with any degree of certainty. 3. Unable to estimate right ventricular function. 4. No hemodynamically significant valvular disease. 5. Unable to estimate central venous pressure and pulmonary artery pressure. COMMENT: Subacute bacterial endocarditis (SBE) prophylaxis is not recommended. MTDD
[2018-11-28] MEDS: ENOXAPARIN 40 MG/0.4 ML SYRINGE (J1650) SC SCH (22:08)
[2018-11-28] MEDS: AZITHROMYCIN INJ 500 MG, VIAL MATE ADAPTER 1 EACH in D5W 250 ML IV SCH (22:09)
[2018-11-28] MEDS: ATENOLOL 25 MG TAB PO SCH (22:10)
[2018-11-29] VITALS (21 sets, daily range): BP systolic 94–145; BP diastolic 55–88
[2018-11-29] MEDS: ALBUTEROL SULFATE 2.5 MG/0.5 ML INH NEB SOLN NEB SCH ×6 (03:08→23:33)
[2018-11-29 05:18] LABS: HEMATOCRIT 40.8 % (36.0-47.0); HEMOGLOBIN 12.3 g/dl (12.0-15.5); MEAN CORPUSCULAR HEMOGLOBIN 29.7 pg (27.0-33.0); MEAN CORPUSCULAR HGB CONC 30.1 g/dl (32.0-36.5); MEAN CORPUSCULAR VOLUME 98.6 fl (80.0-96.0); PLATELET COUNT, AUTOMATED 113 10^3/uL (150-450); RED BLOOD COUNT 4.14 10^6/uL (4.00-5.40); WHITE BLOOD COUNT 6.3 10^3/uL (4.0-10.0)
[2018-11-29 05:35] LABS: BLOOD UREA NITROGEN 15 MG/DL (7-18); CALCIUM LEVEL 8.8 MG/DL (8.5-10.1); CARBON DIOXIDE LEVEL 37 MEQ/L (21-32); CHLORIDE LEVEL 100 MEQ/L (98-107); CREATININE FOR GFR 0.43 MG/DL (0.55-1.30); GLOMERULAR FILTRATION RATE > 60.0 (>58); GLUCOSE, FASTING 106 MG/DL (70-100); POTASSIUM SERUM 4.3 MEQ/L (3.5-5.1); SODIUM LEVEL 140 MEQ/L (136-145)
[2018-11-29] MEDS: BISACODYL 10 MG SUPP PR SCH ×2 (10:09→20:15)
[2018-11-29] MEDS: NYSTATIN 100,000 UNITS/GM TOPICAL PWD 15 GM TOP SCH ×2 (10:10→20:16)
--- NOTE | 2018-11-29 10:43 | NUR ---
Pt seen for bedside swallow evaluation d/t pneumonia and hx of aspiration. Pt presents with mild oropharyngeal phase dysphagia as characterized by slowed mastication, multiple swallows, audible swallows and consistent cough. It is possible that cough is unrelated to swallow but further testing is needed. Recommend: Mechanical soft solids and regular thin liquids (w/straw as per her baseline according to Father whom is present). Meds-whole with liquid wash. consider Modified Barium Swallow Study (Cookie Swallow) Addendum: 11/29/18 at 1048 by CLARISSA TOVAR [facility] [place] Amended: Links added.
[2018-11-29] MEDS: SENNA 8.6 MG TAB (SENOKOT) PO SCH (11:59)
--- NOTE | 2018-11-29 16:51 | IPN ---
DATE: 11/29/[address] Noemi Delgado SUBJECTIVE: Patient examined at bedside. No reported issues overnight. Her heart rate is well maintained now that she is back on her home atenolol, switched off of the IV beta tracy. She continues to be titrated down on her bilevel positive airway pressure (BiPAP) and overall hemodynamically stable. No reported issues overnight, is tolerating diet well thus far on full liquids. PHYSICAL EXAM: Vital Signs: Temperature 97.6, pulse 78, respirations 12, blood pressure 103/61, mean arterial pressure (MAP) of 75, pulse oximetry 94% on BiPAP with an FiO2 of 35. General: Resting comfortably in bed, continues on BiPAP. She is awake and alert, at her baseline mentation with her cerebral palsy. HEENT: Normocephalic, atraumatic. Extraocular muscles intact. Neck: Supple. Jugular venous distention (JVD) difficult to assess given large body habitus. Moist mucous membranes. Cardiac: Regular rate, regular rhythm. Distant heart sounds. No murmurs. Lungs: Mild bibasilar rales bilaterally, otherwise mild rhonchi and improving from admission. Abdomen: Obese, nontender. Normoactive bowel sounds. Extremities: Chronic clawing of digits bilateral hands and chronic puffiness in bilateral feet. Currently has 1+ pitting edema bilateral lower extremities. LABORATORY: WBC 6.3, hemoglobin and hematocrit 12 and 40, platelets 113. Electrolytes normal. BUN and creatinine 15 and 0.43. IMPRESSION AND PLAN: 1. Acute on chronic respiratory failure with hypercapnia and hypoxia. She is still requiring BiPAP, titrating down as per pulmonology. Appreciate Dr. Child's input. She continues on ceftriaxone and azithromycin for her community-acquired pneumonia and supportive care as well for her respiratory syncytial virus (RSV). Overall is clinically improving. Given that she is more alert and back to her baseline, she has been tolerating her liquid diet well thus far and per speech and swallow evaluation, they recommended soft diet, which we will advance today and monitor. Once she is stable enough off of BiPAP and able to go off the unit, will also followup with modified cookie swallow per swallow evaluation. 2. Tachycardia. Heart rate is now controlled and is being switched from IV Lopressor to her home dose of oral atenolol. 3. Episodic hypotension. It is essentially resolved at this point. Will currently withhold adding any additional IV fluids or giving Lasix and closely monitor her intake and output. Her hypovolemic status is improving and once she is more stable, will consider additional IV fluids and Lasix for urine output as well. 4. Encephalopathy. Likely secondary to acute hypoxic hypercarbic state she presented in. She is now back to her baseline MR given her cerebral palsy, noted to be more alert and interactive. Will follow with physical therapy (PT) and occupational therapy (OT). 5. History of supraventricular tachycardia (SVT). Stable. Follows with Dr. Hutchinson outpatient. 6. Chronic decubitus ulcers. Status post flap closure. 7. History of aspiration pneumonia. On aspiration precautions. 8. History of cerebral palsy. Currently at her baseline mentation, complicates medical care and compliance. 9. Deep vein thrombosis (DVT) prophylaxis. Lovenox subcu. DISPOSITION: Continue monitoring respiratory status in intensive care unit (ICU), BiPAP per pulmonary. My faculty preceptor for this patient encounter was physically present during the encounter and was fully available. All aspects of the patient interview, examination, medical decision making process, and medical care plan development were reviewed and approved by the faculty preceptor. The faculty preceptor is aware and concurs with the plan as stated in the body of this note and will attest to such by his/her cosignature. HILDA
[2018-11-29] MEDS: MIRALAX *UNIT DOSE* 17GM PACKET PO SCH (17:03)
[2018-11-29] MEDS: cefTRIAXone SOD 2 GM in D5W MINI-BAG PLUS 50 ML IV SCH (20:13)
[2018-11-29] MEDS: SENOKOT S TAB PO SCH (20:14)
[2018-11-29] MEDS: ATENOLOL 25 MG TAB PO SCH (20:14)
[2018-11-29] MEDS: ENOXAPARIN 40 MG/0.4 ML SYRINGE (J1650) SC SCH (20:15)
[2018-11-29] MEDS: AZITHROMYCIN INJ 500 MG, VIAL MATE ADAPTER 1 EACH in D5W 250 ML IV SCH (21:37)
[2018-11-30] VITALS (35 sets, daily range): BP systolic 74–196; BP diastolic 52–98; O2SAT 96
[2018-11-30] MEDS: ALBUTEROL SULFATE 2.5 MG/0.5 ML INH NEB SOLN NEB SCH ×5 (03:36→19:38)
[2018-11-30 05:42] LABS: HEMATOCRIT 40.7 % (36.0-47.0); HEMOGLOBIN 11.9 g/dl (12.0-15.5); MEAN CORPUSCULAR HEMOGLOBIN 29.5 pg (27.0-33.0); MEAN CORPUSCULAR HGB CONC 29.2 g/dl (32.0-36.5); PLATELET COUNT, AUTOMATED 109 10^3/uL (150-450); RED BLOOD COUNT 4.03 10^6/uL (4.00-5.40); WHITE BLOOD COUNT 4.8 10^3/uL (4.0-10.0)
[2018-11-30 05:52] LABS: BLOOD UREA NITROGEN 13 MG/DL (7-18); CALCIUM LEVEL 8.4 MG/DL (8.5-10.1); CARBON DIOXIDE LEVEL 37 MEQ/L (21-32); CHLORIDE LEVEL 99 MEQ/L (98-107); CREATININE FOR GFR 0.33 MG/DL (0.55-1.30); GLOMERULAR FILTRATION RATE > 60.0 (>58); GLUCOSE, FASTING 79 MG/DL (70-100); POTASSIUM SERUM 4.5 MEQ/L (3.5-5.1); SODIUM LEVEL 139 MEQ/L (136-145)
[2018-11-30] MEDS ORDERED: FUROSEMIDE 40 MG/4 ML VIAL (J1940) IV ONE (08:45)
[2018-11-30] MEDS: BISACODYL 10 MG SUPP PR SCH (08:57)
[2018-11-30] MEDS: MIRALAX *UNIT DOSE* 17GM PACKET PO SCH (08:57)
[2018-11-30] MEDS: SENOKOT S TAB PO SCH ×3 (08:57→21:00)
[2018-11-30] MEDS: NYSTATIN 100,000 UNITS/GM TOPICAL PWD 15 GM TOP SCH ×2 (09:39→20:54)
--- NOTE | 2018-11-30 13:53 | NUR ---
Pt seen for follow up to assess tolerance of diet modification. Pt observed to be mashing solids to the hard palate with intermittent chewing. No s/s of aspiration/penetration with current diet. Please continue with mechanical soft solids and thin liquids. Nursing reported biting on utensils. Please do NOT use plastic utensils, including med administration. Pt D/C from [facility] Addendum: 11/30/18 at [address] [facility] [place] Amended: Links added.
[2018-11-30] MEDS: cefTRIAXone SOD 2 GM in D5W MINI-BAG PLUS 50 ML IV SCH (20:11)
[2018-11-30] MEDS: ENOXAPARIN 40 MG/0.4 ML SYRINGE (J1650) SC SCH (20:11)
[2018-11-30] MEDS: ATENOLOL 25 MG TAB PO SCH ×2 (20:12→20:34)
[2018-11-30] MEDS ORDERED: METOPROLOL 5 MG/5 ML VIAL IV ONE (20:45)
[2018-11-30] MEDS: AZITHROMYCIN INJ 500 MG, VIAL MATE ADAPTER 1 EACH in D5W 250 ML IV SCH (20:54)
[2018-11-30] MEDS ORDERED: ONDANSETRON 4MG/2ML VIAL (J2405) IV PRN (22:45)
[2018-11-30] MEDS ORDERED: SUCCINYLCHOLINE INJ 200 MG/10 ML VIAL (J0330) As Ordered ONE (23:18)
[2018-11-30] MEDS ORDERED: ETOMIDATE INJ 20MG/10ML VIAL As Ordered ONE (23:18)
[2018-11-30] MEDS ORDERED: PROPOFOL 1,000 MG/100 ML VIAL As Ordered ONE (23:20)
[2018-12-01] VITALS (77 sets, daily range): BP systolic 59–131; BP diastolic 31–88
[2018-12-01] MEDS: ALBUTEROL SULFATE 2.5 MG/0.5 ML INH NEB SOLN NEB SCH ×6 (00:03→19:19)
[2018-12-01] MEDS ORDERED: SUCCINYLCHOLINE INJ 200 MG/10 ML VIAL (J0330) IV STA (00:10)
[2018-12-01] MEDS ORDERED: ETOMIDATE INJ 20MG/10ML VIAL IV ONE (00:15)
[2018-12-01] MEDS: PROPOFOL 1,000 MG in APPROPRIATE DILUENT 1 EA IV SCH ×3 (00:40→15:17)
[2018-12-01 01:29] LABS: ABG BASE EXCESS 19.8 (-2.0-2.0); ABG HCO3 50.5 MEQ/L (22.0-26.0); ABG O2 SATURATION 95.8 % (95.0-99.0); ABG PARTIAL PRESSURE O2 77.1 mmHg (75.0-100.0); ABG STANDARD HCO3 44.2 MEQ/L (22.0-26.0); ABG TOTAL CO2 53.3 MEQ/L (22.0-29.0); ABG pH (ARTERIAL) 7.372 UNITS (7.350-7.450)
[2018-12-01 03:38] LABS: CPK CREATINE PHOSPHOKINASE 176 U/L (26-192); MB/CK RELATIVE INDEX 1.76 (< OR =4); TROPONIN I < 0.02 NG/ML (< 0.10)
[2018-12-01 05:08] LABS: HEMATOCRIT 46.3 % (36.0-47.0); MEAN CORPUSCULAR VOLUME 99.8 fl (80.0-96.0); PLATELET COUNT, AUTOMATED 126 10^3/uL (150-450); RED BLOOD COUNT 4.64 10^6/uL (4.00-5.40); WHITE BLOOD COUNT 4.8 10^3/uL (4.0-10.0)
[2018-12-01 05:09] LABS: HEMOGLOBIN 13.9 g/dl (12.0-15.5)
[2018-12-01 05:53] LABS: BLOOD UREA NITROGEN 22 MG/DL (7-18); CALCIUM LEVEL 9.2 MG/DL (8.5-10.1); CARBON DIOXIDE LEVEL 40 MEQ/L (21-32); CHLORIDE LEVEL 92 MEQ/L (98-107); CREATININE FOR GFR 0.78 MG/DL (0.55-1.30); GLOMERULAR FILTRATION RATE > 60.0 (>58); GLUCOSE, FASTING 139 MG/DL (70-100); POTASSIUM SERUM 4.3 MEQ/L (3.5-5.1); SODIUM LEVEL 140 MEQ/L (136-145)
[2018-12-01 06:01] LABS: ABG BASE EXCESS 18.5 (-2.0-2.0); ABG HCO3 45.6 MEQ/L (22.0-26.0); ABG O2 SATURATION 97.6 % (95.0-99.0); ABG PARTIAL PRESSURE CO2 62.4 mmHg (35.0-45.0); ABG PARTIAL PRESSURE O2 86.7 mmHg (75.0-100.0); ABG STANDARD HCO3 42.8 MEQ/L (22.0-26.0); ABG TOTAL CO2 47.6 MEQ/L (22.0-29.0); ABG pH (ARTERIAL) 7.482 UNITS (7.350-7.450)
--- NOTE | 2018-12-01 06:13 | RO ---
DATE OF PROCEDURE: 11/30/2018 PREOPERATIVE DIAGNOSIS: Mucus plugging. POSTOPERATIVE DIAGNOSIS: Mucus plugging. PROCEDURE: Therapeutic bronchoscopy with aspiration of secretions. SURGEON: Dr. Nishant Child [employer]: ANESTHESIA: The procedure was performed while still under anesthesia after intubation. OPERATIVE FINDINGS: 1. Endotracheal tube in good position. 2. Thin watery secretions consistent with bile obtained throughout. DESCRIPTION OF PROCEDURE: After the patient was identified, the scope was passed through the existing endotracheal tube. It was found to be in good position about 2-3 cm above the kenneth. Airways were small. Kenneth was sharp. The left lung entered first. All segments and subsegments easily identifiable, but some bilious thick secretions were encountered, especially dependently, and these were suctioned clear. Attention was turned to the right. Similar findings were noted with retained bilious secretions suctioned clear. Oxygen saturation improved postprocedure. No complications noted.
[2018-12-01] MEDS ORDERED: ACETAMINOPHEN TAB 650MG DOSE (2X325MG) NG PRN (08:00)
--- NOTE | 2018-12-01 08:03 | REP ---
Clinical: Status post intubation. Comparison: 11/30/2018. Findings: Endotracheal tube 5 cm above the kenneth at the thoracic inlet and stable. Nasogastric tube courses below left hemidiaphragm in satisfactory position. Diffuse bilateral interstitial and alveolar infiltrates (right greater than left) are essentially unchanged. There appears to be element of mediastinal shift to the right which is slightly less pronounced than prior examination. There is no pneumothorax. No obvious effusion. Skeletal structures intact. Impression: Moderate diffuse interstitial and alveolar infiltrates (right greater than left) similar to prior examination. Differential diagnosis includes pneumonia as well as pulmonary edema. Electronically Signed by Barber Olson MD 12/01/2018 07:54 A
--- NOTE | 2018-12-01 08:09 | REP ---
Abdomen series: Two views. History: Nausea, vomiting. Comparison study: September 25, 2015. Findings: Supine and upright views demonstrate a nasogastric tube looped within the gastric fundus. There are two calcifications in the right upper quadrant which may be large urinary tract calculi or biliary calculi. The largest measures 1.5 cm. There are two or three loops of mildly dilated air and fluid-filled small bowel in the central abdomen. There is air in the left colon and right colon. No colonic dilation is seen. Impression: Two calcifications right upper quadrant, biliary versus urinary tract. Ileus pattern versus early or partial small bowel obstruction. No evidence of free air. NG tube in the stomach. Electronically Signed by Ovidio Fowler MD 12/01/2018 08:25 A
--- NOTE | 2018-12-01 08:10 | REP ---
Portable chest x-ray: 11/30/2018, 11:42 p.m. film. History: Status post intubation. Comparison chest x-ray November 25, 2018. Findings: A nasogastric tube has been passed and is looped in the stomach which is distended with gas. The left hemidiaphragm is quite elevated. There is an infiltrate in the perihilar region on the right involving the right upper lobe and right middle lobe region. There is some discoid atelectasis in the left lung at the perihilar level just above the elevated left hemidiaphragm. There is a dextrocardia pattern but the heart does not appear to be enlarged. There are two calcifications in the right upper quadrant of the abdomen. No free subdiaphragmatic air is seen. Endotracheal tube is noted in good position at the level of the proximal clavicles. Electronically Signed by Ovidio Fowler MD 12/01/2018 08:25 A
--- NOTE | 2018-12-01 08:24 | ECGEPIP ---
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 Electronically Signed On 12-01-2018 8:23:50 EST by Arcenio Hamm
[2018-12-01] MEDS ORDERED: SODIUM CHLORIDE 0.9% 1000ML IV ONE (09:15)
[2018-12-01] MEDS: CHLORHEXIDINE GLUCONATE 0.12 % 15ML UDC (PERIDEX ORAL RINSE) MT SCH ×2 (09:19→20:38)
[2018-12-01] MEDS: MIRALAX *UNIT DOSE* 17GM PACKET NG SCH (09:19)
[2018-12-01] MEDS: PANTOPRAZOLE 40MG INJ (PROTONIX) (C9113) IV SCH (09:20)
[2018-12-01] MEDS: SENOKOT S TAB NG SCH ×2 (09:20→20:40)
[2018-12-01] MEDS: NYSTATIN 100,000 UNITS/GM TOPICAL PWD 15 GM TOP SCH ×2 (09:21→20:39)
[2018-12-01 09:27] LABS: CK-MB VALUE MASS < 1.0 NG/ML (<3.6); CPK CREATINE PHOSPHOKINASE 83 U/L (26-192); TROPONIN I < 0.02 NG/ML (< 0.10)
[2018-12-01] MEDS ORDERED: PILL CRUSHER/CUTTER 1 EACH XX PRN (09:45)
--- NOTE | 2018-12-01 10:01 | CCN ---
DATE: 11/30/2018 START TIME: 2320 hours STOP TIME: 2356 hours I again attended Eunice Judd. I was called for an acute change in her status. She vomited and aspirated. Saturations even on 100% on the noninvasive were intermittently down in the 40s and 60s with an associated tachycardia. Clearly in distress. Fortunately, anesthesia was in the hospital and was able to get her intubated. On my arrival, multiple ventilator manipulations were made. Bronchoscopy was performed, which is dictated under separate cover and occupied less than 5 minutes' time. On the first chest x-ray, the NG tube appeared to be only at the GE junction with a very large gastric silhouette. This was repositioned by myself with excellent return of air and improvement in her gastric bubble on repeat chest x-ray. With ventilator manipulations, I was able to get her FiO2 requirements down from 100% to 70% with a saturation of 97% and blood gas is pending at the time of this dictation. PHYSICAL EXAMINATION She is sedate. Pupils react. Trachea is in the midline. There are coarse rhonchi bilaterally but air entry is reasonable. There is expiratory wheeze. CARDIAC: Tachycardic but regular. Peripheral pulses are palpable. Heart rate approximately 120 and blood pressure 118 systolic. ABDOMEN: Remains distended but there are active bowel sounds. The most pressing problems requiring my presence at the bedside: 1. Acute hypoxic respiratory failure. 2. Aspiration event. 3. Developmental disability. I had a long discussion with her father at the bedside. Clearly he wishes at this point to proceed with intubation and mechanical ventilation. He will make further decisions regarding code status of the patient in the next 24 hours, he tells me. I do believe that she could probably benefit from some IV fluids. We will see how that goes. She is on IV Propofol. We will continue her current antimicrobials. I left the bedside at 2356 hours. An additional 36 minutes of critical care time was delivered at the bedside, not including procedures.
[2018-12-01] MEDS: MIDAZOLAM INJ 2 MG/2 ML VIAL (J2250) IV PRN ×3 (10:02→19:35)
--- NOTE | 2018-12-01 10:47 | CCN ---
DATE: 12/01/2018 START TIME: 0905 hours STOP TIME: 91981 hours I again attended Eunice Judd here in the intensive care unit. She is intubated, sedated and mechanically ventilated. I have spoken at length with her father at the bedside. Maximum temperature (Tmax) overnight 99.8, blood pressure 74-130 systolic, heart rate generally in the 110s to the 120s with a sinus mechanism and occasional ectopy. Respiratory rate generally in the 10s to 20s. Intake and output midnight to midnight 1765 mL in with 3735 mL out. Sodium 140, potassium 4.3, chloride 92, CO2 of 40, BUN 22, creatinine 0.78. White blood cell count 4.4, hemoglobin 13.9, and platelet count 126,000. Blood gas done on PRVC rate of 18, tidal volume of 450, PEEP of 10, and FiO2 of 40% shows a pH of 7.482, pCO2 of 62.4 and a pO2 of 86.7. Chest x-ray shows much less gastric distention. Tube in good position. Vasculature somewhat crowded but markedly suboptimal effort. On exam, she is chronically ill-appearing. Vitals as above. Pupils do react. Sclerae are clear. Trachea is in the midline. Chest shows some scattered rhonchi. Expansion diminished but symmetric. Cardiac exam tachycardic but regular. Peripheral pulses diminished but palpable. Abdomen soft, mildly distended, but active bowel sounds. No guarding or rebound. Extremities show chronic lower extremity edema, muscle wasting consistent with her developmental disability. Neurologically, she is sedate. The most pressing problems requiring my presence at the bedside: 1. Acute on chronic respiratory failure. 2. Hypoxemic respiratory failure secondary to aspiration. 3. Obstructive sleep apnea syndrome. 4. Developmental disability. Ulcer and deep venous thrombosis (DVT) prophylaxis are in place. She is on empiric antimicrobials. Bronchoscopy showed only bilious material but no significant foreign bodies. I had a long discussion at the bedside with her father. For now, we will try to resuscitate her with fluids as I believe she is clinically dry. We will get a peripherally inserted central catheter (PICC) line placed today. If unable, then central IV access but overall I believe PICC line would be more prudent. I do not believe that her status represents a small bowel obstruction as she has had several bowel movements. Her abdomen is much softer today after placement of a nasogastric (NG) tube and she actually has reasonable bowel sounds on exam. We will add some Reglan with the beginning of some slow enteral feeds. I am told that her father is considering at least putting no cardiopulmonary resuscitation (CPR) in place and the primary service is having that discussion with them at them moment. We will proceed as outlined above. Her prognosis remains guarded at best. I left the bedside at 0949 hours. 44 minutes of critical care time delivered at the bedside, not including procedures. HILDA
[2018-12-01] MEDS: METOCLOPRAMIDE INJ 10MG/2ML VIAL (J2765) IV SCH ×3 (11:30→23:32)
[2018-12-01] MEDS ORDERED: LIDOCAINE 1% MDV 20ML VIAL As Ordered ONE (11:35)
[2018-12-01] MEDS ORDERED: SODIUM CHLORIDE 0.9% INJ 10 ML SYR IV PRN (13:15)
--- NOTE | 2018-12-01 15:16 | IPN ---
DATE: 11/30/2018 SUBJECTIVE: Patient examined at bedside. No issues overnight. She continues to be on and off of bilevel positive airway pressure (BiPAP) alternating with Vapotherm per pulmonary. She has had decreased urine output yesterday; however, is diuresing well after given one dose of intravenous (IV) Lasix today. She also had a large bowel movement and abdomen is soft and less distended. Otherwise is doing well and no other issues overnight and tolerating her diet well. PHYSICAL EXAMINATION: VITAL SIGNS: Temperature 99.4, pulse 107, respirations 16, blood pressure 170/77, mean arterial pressure (MAP) 109, pulse oximetry 88% on Vapotherm with an FiO2 of 40. GENERAL: Resting comfortably in bed on Vapotherm this morning. Awake and alert. Baseline mentation with cerebral palsy. HEENT: Normocephalic, atraumatic. Extraocular muscles intact. NECK: Supple. No appreciable jugular venous distention (JVD) given her large body habitus. Moist mucous membranes. CARDIAC: Borderline tachycardic. Regular rhythm. Distant heart sounds. No appreciable murmurs. LUNGS: Mild rhonchi bilaterally, otherwise clear to auscultation and improving from admission. ABDOMEN: Obese, soft, nontender, nondistended. Normoactive bowel sounds. EXTREMITIES: Chronic clawing of digits bilaterally of the hands and chronic puffiness in bilateral feet. Has trace pitting edema bilateral lower extremities otherwise. LABORATORY DATA: WBC 4.8, hemoglobin and hematocrit (H and H) 11.9 and 40.7, platelets 109. Electrolytes normal. BUN and creatinine 13 and 0.33. Methicillin-resistant Staphylococcus aureus (MRSA) screen negative. Blood cultures negative. IMPRESSION AND PLAN: 1. Acute on chronic respiratory failure with hypercapnia and hypoxia. She continues to require supplemental oxygen above her baseline of 2 liters nasal cannula. Currently pulmonary is attempting to switch her from bilevel positive airway pressure (BiPAP) to Vapotherm. Her care is complicated with her underlying respiratory syncytial virus (RSV) as well as community-acquired pneumonia, for which she is on ceftriaxone and Zithromax, started on 11/25/2018, which we will continue for now. She continues to tolerate her diet well and currently is back to her baseline mentation. Will continue monitoring her respiratory status and once she is able to go off of BiPAP and off of the unit, we will follow up with a modified cookie swallow, per speech's swallow recommendations. 2. Oliguria. Patient's output from yesterday was 0.28 mL/kg per hour. She is much improved after one dose of IV Lasix today and already has put out more than 1.5 liters. Continue monitoring. Patient does have Artis currently for strict input and output (I and O). 3. Encephalopathy. Resolved. She is back to her baseline MR given her cerebral palsy. Continue physical therapy (PT) and occupational therapy (OT) once she is able to tolerate off of BiPAP. 4. History of supraventricular tachycardia (SVT). Stable. Follows with Dr. Hutchinson outpatient. Her home atenolol is resumed. 5. Chronic decubitus ulcers status post flap closure. 6. History of aspiration pneumonia. On aspiration precautions. Currently being treated with antibiotics. 7. History of cerebral palsy. Currently at baseline mentation. Complicates medical care and compliance. 8. Deep venous thrombosis (DVT) prophylaxis. Lovenox subcutaneously. DISPOSITION: Continue monitoring respiratory status in the intensive care unit (ICU). BiPAP and Vapotherm as per pulmonary.
--- NOTE | 2018-12-01 16:39 | REP ---
Procedure: PICC line insertion with Mallory The procedure was performed under the direct supervision of Dr. Fowler. The risks and benefits of the procedure were explained and informed consent was obtained by the healthcare proxy. The procedure was performed in the ICU at the bedside. The right basilic vein was localized using ultrasound guidance. The skin was prepped and draped in a sterile fashion. 1% lidocaine was used as a local anesthetic. Using ultrasound guidance the basilic vein was cannulated and a 0.018 guidewire was inserted. The needle was removed and a 5.5 [place] dilator and peel-away sheath was inserted over the guide wire. A 5.5 [place] dual lumen catheter was cut to length of 40 cm. The dilator was removed and the catheter was inserted over the guidewire. A portable chest x-ray was performed and the image demonstrates the catheter to be doubled back on to itself in the right subclavian vein. The catheter was repositioned and another chest x-ray was performed. This image demonstrates the catheter to have been advanced into the left subclavian vein. The catheter was repositioned one more time. Another chest x-ray was performed and the image demonstrates the tip of the catheter to be in the SVC. The peel-away sheath was removed and the catheter was flushed with heparinized saline as per Hospital protocol. The catheter was affixed to the skin and a sterile dressing was applied. The patient tolerated the procedure well and there were no immediate complications. Reviewed by MIHAI Garsia 12/01/2018 04:11 P Electronically Signed by Ovidio Fowler MD 12/01/2018 04:30 P
[2018-12-01] MEDS: SODIUM CHLORIDE 0.9% INJ 10 ML SYR IV SCH (18:00)
[2018-12-01] MEDS: HumaLOG INSULIN (NovoLOG) PER UNIT SC SCH ×2 (18:17→23:56)
[2018-12-01] MEDS: cefTRIAXone SOD 2 GM in D5W MINI-BAG PLUS 50 ML IV SCH (20:38)
[2018-12-01] MEDS: AZITHROMYCIN INJ 500 MG, VIAL MATE ADAPTER 1 EACH in D5W 250 ML IV SCH (20:39)
[2018-12-01] MEDS: ENOXAPARIN 40 MG/0.4 ML SYRINGE (J1650) SC SCH (20:39)
[2018-12-01] MEDS: ATENOLOL 25 MG TAB PO SCH (20:40)
[2018-12-02] VITALS (24 sets, daily range): BP systolic 88–121; BP diastolic 54–79
[2018-12-02] MEDS: PROPOFOL 1,000 MG in APPROPRIATE DILUENT 1 EA IV SCH ×3 (02:11→18:07)
[2018-12-02] MEDS: ALBUTEROL SULFATE 2.5 MG/0.5 ML INH NEB SOLN NEB SCH ×6 (04:07→19:38)
[2018-12-02] MEDS: METOCLOPRAMIDE INJ 10MG/2ML VIAL (J2765) IV SCH ×3 (04:57→16:41)
[2018-12-02] MEDS: SODIUM CHLORIDE 0.9% INJ 10 ML SYR IV SCH ×2 (04:58→18:07)
[2018-12-02 05:23] LABS: ABG BASE EXCESS 13.9 (-2.0-2.0); ABG HCO3 36.7 MEQ/L (22.0-26.0); ABG O2 SATURATION 95.9 % (95.0-99.0); ABG PARTIAL PRESSURE O2 62.9 mmHg (75.0-100.0); ABG STANDARD HCO3 37.7 MEQ/L (22.0-26.0); ABG TOTAL CO2 37.9 MEQ/L (22.0-29.0); ABG pH (ARTERIAL) 7.592 UNITS (7.350-7.450)
[2018-12-02 05:29] LABS: MEAN CORPUSCULAR HEMOGLOBIN 29.7 pg (27.0-33.0); MEAN CORPUSCULAR VOLUME 98.9 fl (80.0-96.0); PLATELET COUNT, AUTOMATED 141 10^3/uL (150-450); RED BLOOD COUNT 3.54 10^6/uL (4.00-5.40)
[2018-12-02 05:32] LABS: HEMOGLOBIN 10.5 g/dl (12.0-15.5)
[2018-12-02 05:44] LABS: BLOOD UREA NITROGEN 19 MG/DL (7-18); CALCIUM LEVEL 8.3 MG/DL (8.5-10.1); CARBON DIOXIDE LEVEL 37 MEQ/L (21-32); CHLORIDE LEVEL 98 MEQ/L (98-107); CREATININE FOR GFR 0.64 MG/DL (0.55-1.30); GLOMERULAR FILTRATION RATE > 60.0 (>58); GLUCOSE, FASTING 141 MG/DL (70-100); POTASSIUM SERUM 2.6 MEQ/L (3.5-5.1); SODIUM LEVEL 141 MEQ/L (136-145)
[2018-12-02] MEDS: MIDAZOLAM INJ 2 MG/2 ML VIAL (J2250) IV PRN ×4 (06:06→18:06)
[2018-12-02] MEDS: HumaLOG INSULIN (NovoLOG) PER UNIT SC SCH ×3 (06:06→17:30)
[2018-12-02] MEDS: KCL 20MEQ IN 100ML SWI (KRUN) 20 MEQ in APPROPRIATE DILUENT 1 EA IV SCH ×4 (06:50→08:18)
--- NOTE | 2018-12-02 08:11 | REP ---
Portable chest x-ray: Single view. History: Intubated. Comparison study: December 01, 2018. Findings: EKG monitoring electrodes overlie the chest. There is a right-sided PICC line with its tip in the expected location of the superior vena cava. A nasogastric tube is seen entering the left upper quadrant and terminating at the gastric fundus. An endotracheal tube is seen in good position just below the level of the proximal clavicles. There is alveolar consolidation pattern in the right perihilar region similar to the previous day's radiograph. Today's view is exposed at a lesser level of inspiration. The left hemidiaphragm is more elevated than it was yesterday. Subsegmental atelectatic changes are seen in the left base. No new infiltrate is appreciated. Cardiomediastinal silhouette is unchanged. Electronically Signed by Ovidio Fowler MD 12/02/2018 08:30 A
[2018-12-02] MEDS: PANTOPRAZOLE 40MG INJ (PROTONIX) (C9113) IV SCH (08:18)
[2018-12-02] MEDS: CHLORHEXIDINE GLUCONATE 0.12 % 15ML UDC (PERIDEX ORAL RINSE) MT SCH ×2 (08:18→20:01)
[2018-12-02] MEDS: NYSTATIN 100,000 UNITS/GM TOPICAL PWD 15 GM TOP SCH ×2 (08:19→20:01)
[2018-12-02] MEDS: SENOKOT S TAB NG SCH ×2 (08:19→20:00)
[2018-12-02] MEDS: MIRALAX *UNIT DOSE* 17GM PACKET NG SCH (08:23)
--- NOTE | 2018-12-02 10:43 | CCN ---
DATE OF SERVICE: 12/02/2018 Ms. Judd was seen in the intensive care unit (ICU). She is intubated. She is alert and looking around. Nurses report that her blood pressures have been a little soft. Otherwise, she is afebrile. No other new issues per nursing. She did have a bowel movement earlier this morning. Her urine output did slow down during the night but is improved to about 30 mL an hour currently. PHYSICAL EXAMINATION: Vitals: Temperature 98.1, pulse 105, respiratory rate 22, blood pressure is 92/54, pulse ox 95%. The patient is on ventilator with pressure regulated volume control with tidal volume of 450, rate of 18, PEEP of 7, FIO2 of 30. General: The patient is alert. She is on ventilator as noted. HEENT: Head is normocephalic, atraumatic. Neck: Trachea is midline. No jugular venous distention (JVD). No cervical lymphadenopathy. Chest: With some scattered rhonchi. No accessory muscle use. Some diminished breath sounds. Cardiac: Regular rate and rhythm. S1, S2. Abdomen: Hypoactive bowel sounds. Abdomen is somewhat distended. Soft and nontender. No guarding or rebound. Extremities: Bilateral lower extremity 1 to 2+ edema. LABORATORY DATA: ABG: pH 7.592, pCO2 is 39.0, pO2 is 62.9, HCO3 is 36.7. WBC 8.0, hemoglobin 10.5, hematocrit 35.0, platelet 141. Sodium 141, potassium 2.6, chloride 98, carbon dioxide 37, BUN 19, creatinine is 0.64, glucose 141, calcium 8.3, magnesium 2.0. LABORATORY DATA: Positive for RSV. Blood cultures showed no growth after 5 days. Additional blood cultures were obtained yesterday times two and are currently pending. Chest x-ray Shows continued right perihilar consolidation, as well as an elevated left hemidiaphragm. Endotracheal tube is in good position. A right peripherally inserted central catheter (PICC) line and nasogastric tube are also viewed. ASSESSMENT/PLAN: 1. Acute on chronic hypercapnic respiratory failure. The patient does remain on mechanical ventilation. This is likely will be a long-term process. May need to have a conversation with the patient's father about trache. The patient is alkalotic on her blood gas. Her bicarbonate is elevated. Plan is to turn her title volume down some. 2. Aspiration pneumonitis. This does not appear to be a pneumonia. The patient does not have a fever, has remained afebrile. Her white count is good at 8. She has been on 7 days of ceftriaxone and azithromycin. Plan will be for these medications to be stopped as we are de-escalating/ discontinuing antibiotic therapy. We will continue to monitor. 3. Suspected hypoalbuminemia. We will obtain an albumin level for today. The patient does have bilateral lower extremity edema. We will continue to monitor.
[2018-12-02 17:25] LABS: ALBUMIN 2.1 GM/DL (3.2-5.2); ALT/SGPT 25 U/L (12-78); BILIRUBIN,TOTAL 0.4 MG/DL (0.2-1.0); BLOOD UREA NITROGEN 18 MG/DL (7-18); CALCIUM LEVEL 8.8 MG/DL (8.5-10.1); CARBON DIOXIDE LEVEL 35 MEQ/L (21-32); CHLORIDE LEVEL 99 MEQ/L (98-107); CREATININE FOR GFR 0.54 MG/DL (0.55-1.30); GLOMERULAR FILTRATION RATE > 60.0 (>58); GLUCOSE, FASTING 94 MG/DL (70-100); POTASSIUM SERUM 3.5 MEQ/L (3.5-5.1); SODIUM LEVEL 139 MEQ/L (136-145); TOTAL PROTEIN 6.3 GM/DL (6.4-8.2)
[2018-12-02] MEDS: ATENOLOL 25 MG TAB PO SCH (20:00)
[2018-12-02] MEDS: ENOXAPARIN 40 MG/0.4 ML SYRINGE (J1650) SC SCH (20:01)
[2018-12-03] VITALS (17 sets, daily range): BP systolic 99–133; BP diastolic 56–82; O2SAT 95
[2018-12-03] MEDS: PROPOFOL 1,000 MG in APPROPRIATE DILUENT 1 EA IV SCH ×2
[2018-12-03] MEDS: METOCLOPRAMIDE INJ 10MG/2ML VIAL (J2765) IV SCH ×5 (00:09→21:34)
[2018-12-03] MEDS: ALBUTEROL SULFATE 2.5 MG/0.5 ML INH NEB SOLN NEB SCH ×7 (00:19→23:04)
[2018-12-03] MEDS: SODIUM CHLORIDE 0.9% INJ 10 ML SYR IV SCH ×2 (05:32→18:00)
[2018-12-03 05:52] LABS: BASO % 0.5 % (0.0-1.0); EOS # 0.3 10^3/uL (0.0-0.50); EOS % 4.9 % (0.0-3.0); HEMATOCRIT 32.7 % (36.0-47.0); HEMOGLOBIN 10.2 g/dl (12.0-15.5); LYMPH # 1.3 10^3/uL (1.5-4.5); LYMPH % 20.7 % (24.0-44.0); MEAN CORPUSCULAR HEMOGLOBIN 29.7 pg (27.0-33.0); MEAN CORPUSCULAR HGB CONC 31.2 g/dl (32.0-36.5); MEAN CORPUSCULAR VOLUME 95.1 fl (80.0-96.0); MONO # 0.3 10^3/uL (0.0-0.8); NEUTROPHILS # 4.2 10^3/uL (1.8-7.7); NEUTROPHILS % 67.8 % (36.0-66.0); PLATELET COUNT, AUTOMATED 181 10^3/uL (150-450); RED BLOOD COUNT 3.44 10^6/uL (4.00-5.40); WHITE BLOOD COUNT 6.2 10^3/uL (4.0-10.0)
[2018-12-03 06:03] LABS: ABG BASE EXCESS 6.3 (-2.0-2.0); ABG HCO3 30.4 MEQ/L (22.0-26.0); ABG O2 SATURATION 96.3 % (95.0-99.0); ABG PARTIAL PRESSURE CO2 41.7 mmHg (35.0-45.0); ABG PARTIAL PRESSURE O2 80.3 mmHg (75.0-100.0); ABG STANDARD HCO3 30.2 MEQ/L (22.0-26.0); ABG TOTAL CO2 31.6 MEQ/L (22.0-29.0)
[2018-12-03 06:22] LABS: BLOOD UREA NITROGEN 16 MG/DL (7-18); CALCIUM LEVEL 8.1 MG/DL (8.5-10.1); CARBON DIOXIDE LEVEL 30 MEQ/L (21-32); CHLORIDE LEVEL 100 MEQ/L (98-107); CREATININE FOR GFR 0.47 MG/DL (0.55-1.30); GLOMERULAR FILTRATION RATE > 60.0 (>58); GLUCOSE, FASTING 71 MG/DL (70-100); POTASSIUM SERUM 3.6 MEQ/L (3.5-5.1); SODIUM LEVEL 139 MEQ/L (136-145)
[2018-12-03] MEDS ORDERED: KCL 20MEQ IN 100ML SWI (KRUN) 20 MEQ in APPROPRIATE DILUENT 1 EA IV ONE ×2 (08:00)
[2018-12-03] MEDS: MIRALAX *UNIT DOSE* 17GM PACKET NG SCH (08:03)
[2018-12-03] MEDS: CHLORHEXIDINE GLUCONATE 0.12 % 15ML UDC (PERIDEX ORAL RINSE) MT SCH ×2 (08:03→20:51)
[2018-12-03] MEDS: PANTOPRAZOLE 40MG INJ (PROTONIX) (C9113) IV SCH (08:03)
[2018-12-03] MEDS: FUROSEMIDE 40 MG/4 ML VIAL (J1940) IV SCH (08:04)
--- NOTE | 2018-12-03 08:19 | REP ---
Clinical: Respiratory failure. Intubation. Comparison: 12/02/2018. Findings: Endotracheal tube is 3.5 cm above the kenneth. Nasogastric tube courses below left hemidiaphragm. Right PICC line with tip in the SVC. Evaluation is limited by poor inspiratory effort. Elevation to the left hemidiaphragm is suggested along with bibasilar atelectasis and right lower lobe consolidation. Small effusions cannot be excluded. No pneumothorax. Impression: 1. Lines and tubes in satisfactory position. 2. Poor expiratory effort limits evaluation. 3. Elevation to the left hemidiaphragm. 4. Bibasilar atelectasis and right lower lobe consolidation. Electronically Signed by Barber Olson MD 12/03/2018 08:11 A
--- NOTE | 2018-12-03 08:30 | CCN ---
DATE: 12/03/2018 CRITICAL CARE TIME: 1 hour and 4 minutes. Bedside testing to see if she is appropriate for extubation this morning. The patient is awake. She is moving her arms normally like she does when she is in the office. She is attempting to hug me. She does not follow commands on a normal basis. She is off sedation for her sedation vacation. On a pressure support trial of 5/5, she does have rapid shallow breathing. She does not desaturate, but her oxygen saturation was from 94% to 90% on 0.4 FiO2. Shallow breathing index ranges from 163 to 183 with an average tidal volume of 200. She has had no fevers overnight. She is off antibiotic therapy currently. I did discuss with her father yesterday that we will be assessing for the potential for extubation and if she is not a candidate for extubation that we need to consider tracheostomy and feeding tube. He expresses understanding. At this point in time, he states he would need to talk to his own family. PHYSICAL EXAMINATION: Temperature is 98.4, pulse is 101, respiratory rate is 18, blood pressure is 101/59, with an oxygen saturation of 94% on 0.40 FiO2 while on PRVC. Ins and outs with 1352 in and 955 out, net positive 397. General: Awake, alert, performing her usual activities at bedside. HEENT: Sclerae clear and anicteric. Pupils equal and react to light. Mucous membranes are moist without lesions. Tongue is midline. Pulmonary: Breath sounds decreased bilaterally. No rales, rhonchi or wheezes. Poor inspiratory effort. Cardiac: Regular S1 and S2. No murmur, rub or gallop. No elevated jugular venous pulse (JVP). She does have significant systemic edema with pitting bilaterally. This was present yesterday. Abdomen is soft, but slightly potty. Less distended than yesterday. There are hypoactive bowel sounds present. No discernible hepatosplenomegaly. No mass or hernia. Extremities: Pedal edema. Minimal tibial edema. There is sacral edema. No cyanosis or clubbing. Skin: No rashes, jaundice or bruising. Musculoskeletal: Some upper extremity muscle contractures that are chronic. No new evidence of musculoskeletal injury or effusion. Chest x-ray from this morning shows fluid in the right fissure and loops of bowel into the left chest suggesting volume loss on the left. The cardiac silhouette is displaced to the right because of this. The endotracheal tube is approximately 5.9 cm above the kenneth. Arterial blood gas shows a pH of 7.48, pCO2 of 46, pAO2 of 80. White blood cell count 6.2, hemoglobin 10.2 with a platelet count of 181. Albumin is low at 2.1 with a sodium of 139, potassium 3.6, chloride 100, bicarb of 30, BUN of 16, and creatinine of 0.7. PROBLEM LIST: 1. Acute on chronic hypercarbic respiratory failure likely decompensated due to respiratory syncytial virus (RSV) infection. At this point in time on spontaneous breathing trial. She has very low tidal volumes. I suspect this is chronic. I have been expecting this on a clinical basis in the office. I believe its merely a matter of time before she requires tracheostomy and prolonged mechanical ventilation. 2. Protein malnourishment. Unable to feed at this point in time. Albumin is 2.1 today. Will consider restarting tube feeds tomorrow. 3. Edema. Lasix given today. Likely iatrogenic from IV fluid administration. 4. Hypokalemia, replaced IV. 5. Cerebral palsy with advanced mental retardation. Father is the decision maker for the patient. 6. Deep vein thrombosis (DVT) prophylaxis. On Lovenox/ 7. Gastrointestinal (GI) prophylaxis. On Protonix. Overall poor prognosis. At this point in time, she is not a candidate for extubation. She has rapid shallow breathing. I am not sure this will improve over time.
[2018-12-03] MEDS: DOCUSATE SOD LIQ 100MG/10ML UDC GT SCH ×2 (08:48→20:51)
[2018-12-03] MEDS: NYSTATIN 100,000 UNITS/GM TOPICAL PWD 15 GM TOP SCH ×2 (12:00→20:51)
[2018-12-03] MEDS: D5W/0.45% SODIUM CHLORIDE 1,000 ML IV SCH (20:51)
[2018-12-03] MEDS: ENOXAPARIN 40 MG/0.4 ML SYRINGE (J1650) SC SCH (20:51)
[2018-12-04] VITALS (28 sets, daily range): BP systolic 100–136; BP diastolic 55–91; O2SAT 93–96
[2018-12-04] MEDS: ALBUTEROL SULFATE 2.5 MG/0.5 ML INH NEB SOLN NEB SCH ×6 (03:47→22:47)
[2018-12-04] MEDS: METOCLOPRAMIDE INJ 10MG/2ML VIAL (J2765) IV SCH ×4 (05:16→21:30)
[2018-12-04] MEDS: SODIUM CHLORIDE 0.9% INJ 10 ML SYR IV SCH ×2 (05:16→17:17)
[2018-12-04 05:25] LABS: HEMATOCRIT 34.3 % (36.0-47.0); HEMOGLOBIN 10.4 g/dl (12.0-15.5); MEAN CORPUSCULAR HEMOGLOBIN 29.4 pg (27.0-33.0); MEAN CORPUSCULAR HGB CONC 30.3 g/dl (32.0-36.5); MEAN CORPUSCULAR VOLUME 96.9 fl (80.0-96.0); PLATELET COUNT, AUTOMATED 218 10^3/uL (150-450); RED BLOOD COUNT 3.54 10^6/uL (4.00-5.40); WHITE BLOOD COUNT 6.4 10^3/uL (4.0-10.0)
[2018-12-04 05:50] LABS: ABG BASE EXCESS 5.2 (-2.0-2.0); ABG HCO3 29.7 MEQ/L (22.0-26.0); ABG O2 SATURATION 96.6 % (95.0-99.0); ABG PARTIAL PRESSURE CO2 43.1 mmHg (35.0-45.0); ABG PARTIAL PRESSURE O2 80.6 mmHg (75.0-100.0); ABG STANDARD HCO3 29.2 MEQ/L (22.0-26.0); ABG pH (ARTERIAL) 7.456 UNITS (7.350-7.450)
[2018-12-04 05:57] LABS: BLOOD UREA NITROGEN 13 MG/DL (7-18); CALCIUM LEVEL 7.7 MG/DL (8.5-10.1); CARBON DIOXIDE LEVEL 32 MEQ/L (21-32); CHLORIDE LEVEL 101 MEQ/L (98-107); CREATININE FOR GFR 0.47 MG/DL (0.55-1.30); GLOMERULAR FILTRATION RATE > 60.0 (>58); GLUCOSE, FASTING 93 MG/DL (70-100); POTASSIUM SERUM 3.7 MEQ/L (3.5-5.1); SODIUM LEVEL 142 MEQ/L (136-145)
--- NOTE | 2018-12-04 08:26 | REP ---
Clinical: Respiratory distress. Intubation. Comparison: 12/03/2018. Findings: ETT in satisfactory position. Nasogastric tube in satisfactory position. Right PICC line with tip in the SVC. Evaluation is limited by poor inspiratory effort. Subtle right basilar atelectasis along with mild left lower lobe atelectasis cannot be excluded. No definite effusion. No pneumothorax. Skeletal structures stable. Impression: Limited by poor inspiratory effort. Cannot exclude continued bibasilar opacities. Electronically Signed by Barber Olson MD 12/04/2018 08:17 A
[2018-12-04] MEDS: PANTOPRAZOLE 40MG INJ (PROTONIX) (C9113) IV SCH (08:52)
[2018-12-04] MEDS: CHLORHEXIDINE GLUCONATE 0.12 % 15ML UDC (PERIDEX ORAL RINSE) MT SCH ×2 (08:52→21:30)
[2018-12-04] MEDS: FUROSEMIDE 40 MG/4 ML VIAL (J1940) IV SCH (08:53)
[2018-12-04] MEDS: NYSTATIN 100,000 UNITS/GM TOPICAL PWD 15 GM TOP SCH ×2 (08:53→21:30)
[2018-12-04] MEDS: DOCUSATE SOD LIQ 100MG/10ML UDC GT SCH ×2 (08:53→19:55)
[2018-12-04] MEDS: MIRALAX *UNIT DOSE* 17GM PACKET NG SCH (09:00)
[2018-12-04] MEDS: D5W/0.45% SODIUM CHLORIDE 1,000 ML IV SCH ×2 (09:48→23:49)
--- NOTE | 2018-12-04 11:23 | CCN ---
DATE: 12/04/2018 Eunice had been on pressure support / overnight with low tidal volumes. At this point in time and she has is optimized from a respiratory standpoint. I believe she will continue to have chronic respiratory failure as she has had for many years. I had a discussion with the father this morning and we were discussing if she does not do well with the extubation trial today whether or not reintubation and tracheostomy was desired or to let her pass with comfort. He states if with bilevel after extubation if she did not do well from a respiratory standpoint then he would make her comfortable and allow her to pass naturally rather than pursuing prolonged mechanical ventilation with tracheostomy. At this point in time the patient still has not been able to have any significant nutrition. NG tube was left in during the time of extubation. At bedside during extubation the patient temporarily had desaturation event however with aerosol mask recovered. BiPap is in the room in case we need to convert urgently to bilevel noninvasive therapy. The patient is averbal at baseline but awake, looking around the room and moving her upper extremities. PHYSICAL EXAMINATION: Temperature is 99.0, pulse is 104, respiratory rate 16, blood pressure is 111/59 with a mean arterial pressure 76, oxygen saturations 94% on 0.40 FiO2. Intake and output 237 in at 2,627 out, net negative 2354. General: As mentioned above. The patient has her eyes open and is able to look around the room appropriately, moving her arms. HEENT: Sclerae clear anicteric. Pupils equal, round to light. Mucous membranes are moist without lesions. Tongue is midline. Neck is supple. No tracheal deviation or mass. No cervical, supraclavicular, axillary adenopathy. Cardiac: Regular S1-S2 without audible murmur or gallop. No elevated JVP. She does have pedal edema. Abdomen: Potty, soft without grimacing with palpation. There are hypoactive bowel sounds present. Extremities: No cyanosis or clubbing. LABORATORY EVALUATION: Chest x-ray shows decreased chest expansion. White blood cell count is 6.4 with a hemoglobin 10.4, platelet count of 218, sodium is 142, potassium 3.7, chloride is 101, bicarb of 32, BUN of 13, creatinine 0.47 with an arterial blood gases 7.46, pCO2 of 43, pO2 of 80. IMPRESSION: 1. Acute on chronic hypercarbic respiratory failure. Trial of extubation today. It does not appear that the patient's father would want reintubation at this point in time if it was required. Will continue bilevel with all forms of sleep and if she has any respiratory compromise after extubation. 2. Protein malnutrition. I have left the NG tube in possibly to start trickle feeds. This may need to be removed if we have to start bilevel therapy. At this point in time the patient may require percutaneous endoscopic gastrostomy tube for feeding. We will closely monitor the patient and likely gets speech therapy involved when her respiratory status is improved. 3. Edema. Lasix will be continued to be given. I feel it is likely iatrogenic from IV fluid administration and also from hypoalbuminemia. 4. Cerebral palsy, advanced mental retardation. 5. GI prophylaxis on Protonix. 6. DVT prophylaxis on Lovenox. 7. Hypoglycemia on D5 at a low rate in order to prevent any hypoglycemic events as the patient is nothing by mouth.
[2018-12-04] MEDS: ENOXAPARIN 40 MG/0.4 ML SYRINGE (J1650) SC SCH (21:30)
[2018-12-05] VITALS (9 sets, daily range): BP systolic 102–136; BP diastolic 58–75; O2SAT 93–95
[2018-12-05] MEDS: ALBUTEROL SULFATE 2.5 MG/0.5 ML INH NEB SOLN NEB SCH ×2 (03:57→08:20)
[2018-12-05] MEDS: METOCLOPRAMIDE INJ 10MG/2ML VIAL (J2765) IV SCH (04:06)
[2018-12-05 05:38] LABS: ABG BASE EXCESS 8.5 (-2.0-2.0); ABG HCO3 38.7 MEQ/L (22.0-26.0); ABG O2 SATURATION 99.1 % (95.0-99.0); ABG PARTIAL PRESSURE CO2 89.3 mmHg (35.0-45.0); ABG PARTIAL PRESSURE O2 160.8 mmHg (75.0-100.0); ABG STANDARD HCO3 32.3 MEQ/L (22.0-26.0); ABG TOTAL CO2 41.5 MEQ/L (22.0-29.0); ABG pH (ARTERIAL) 7.255 UNITS (7.350-7.450)
[2018-12-05] MEDS: SODIUM CHLORIDE 0.9% INJ 10 ML SYR IV SCH ×2 (05:44→17:19)
[2018-12-05 05:51] LABS: HEMOGLOBIN 11.1 g/dl (12.0-15.5); MEAN CORPUSCULAR HEMOGLOBIN 29.8 pg (27.0-33.0); MEAN CORPUSCULAR HGB CONC 29.2 g/dl (32.0-36.5); MEAN CORPUSCULAR VOLUME 102.2 fl (80.0-96.0); PLATELET COUNT, AUTOMATED 289 10^3/uL (150-450); RED BLOOD COUNT 3.72 10^6/uL (4.00-5.40); WHITE BLOOD COUNT 8.1 10^3/uL (4.0-10.0)
[2018-12-05 06:27] LABS: BLOOD UREA NITROGEN 11 MG/DL (7-18); CALCIUM LEVEL 7.9 MG/DL (8.5-10.1); CARBON DIOXIDE LEVEL 39 MEQ/L (21-32); CHLORIDE LEVEL 97 MEQ/L (98-107); CREATININE FOR GFR 0.41 MG/DL (0.55-1.30); GLOMERULAR FILTRATION RATE > 60.0 (>58); GLUCOSE, FASTING 131 MG/DL (70-100); POTASSIUM SERUM 3.4 MEQ/L (3.5-5.1); SODIUM LEVEL 140 MEQ/L (136-145)
[2018-12-05] MEDS: PANTOPRAZOLE 40MG INJ (PROTONIX) (C9113) IV SCH (08:11)
[2018-12-05] MEDS: CHLORHEXIDINE GLUCONATE 0.12 % 15ML UDC (PERIDEX ORAL RINSE) MT SCH (08:11)
[2018-12-05] MEDS: FUROSEMIDE 40 MG/4 ML VIAL (J1940) IV SCH (08:11)
[2018-12-05] MEDS: NYSTATIN 100,000 UNITS/GM TOPICAL PWD 15 GM TOP SCH ×2 (08:12→21:00)
[2018-12-05] MEDS: DOCUSATE SOD LIQ 100MG/10ML UDC GT SCH (08:12)
[2018-12-05] MEDS: MIRALAX *UNIT DOSE* 17GM PACKET NG SCH (08:12)
[2018-12-05] MEDS ORDERED: KCL 20MEQ IN D5/0.45NS 1000ML 1,000 ML IV SCH (08:15)
--- NOTE | 2018-12-05 08:31 | REP ---
Portable chest x-ray: Single view. History: Intubated. Comparison study December 04, 2018. Findings: A right-sided PICC line is seen in place. The previously noted endotracheal tube has been withdrawn. Oxygen delivery tubing and EKG monitoring electrodes are seen. The lungs are again exposed at a relatively low level of inspiration. No new infiltrate. Electronically Signed by Ovidio Fowler MD 12/05/2018 12:41 P
--- NOTE | 2018-12-05 08:55 | CCN ---
DATE: 12/05/2018 Ms. Judd is in more respiratory failure today. She is on bilevel noninvasive therapy, did not tolerate extubation too well. She has a worsening hypercarbic respiratory failure with a pH of 7.26, pCO2 of 89, pO2 160. She is arousable, awake, looking around the room. At this point in time, I have no way of providing her with nutrition. We discussed goals of care with the father this morning and he expresses understanding how it will be difficult without a tracheostomy and percutaneous endoscopic gastrostomy (PEG) tube to provide ventilation and nutrition. He has decided to make the patient comfortable and therefore I believe that is in the patient's best interest as she has had chronic hypercarbic respiratory failure for a number of years and this is underlying progression of the disease and even with constant BiPAP, she is unable to take very large tidal volumes. PHYSICAL EXAMINATION: Temperature is 99, pulse is 102, respiratory rate is 20, blood pressure is 102/58, mean arterial pressure of 73, oxygen saturation 97% on 0.55 FIO2 at 20 over 12 on bilevel therapy. GENERAL: Awake, alert, in some distress wearing BiPAP, unable to come off. HEENT: Sclerae clear and anicteric. Pupils equal, reactive to light. Mucous membranes are moist without lesions. Tongue is midline. PULMONARY: Decreased chest expansion. No rales, rhonchi or wheezes. Poor inspiratory effort. CARDIAC: Regular S1, S2 without audible murmur or gallop. No elevated jugular venous pressure. She has significant dependent edema, slightly improved. ABDOMEN: Soft, nontender, nondistended. There are hypoactive bowel sounds present. No discernible hepatosplenomegaly, masses or hernia. EXTREMITIES: No cyanosis, clubbing but does have edema. SKIN: Pale without rash, jaundice or bruising. MUSCULOSKELETAL: Chronic contractures, some upper extremity contractures that are chronic but is able to move her upper extremity. She has chronic foot drop bilaterally and does not ambulate on a chronic basis. LABORATORY EVALUATION: pH is 7.26, pCO2 of 89, pAO2 of 161. Sodium is 140, potassium 3.4, chloride is 97, bicarbonate is up to 39, BUN is 11, creatinine 0.41, white blood cell count is 8.1, hemoglobin is 11.1, platelet count of 289. Chest x-ray shows poor chest expansion with some air in the stomach. IMPRESSION: 1. Hypercarbic respiratory failure. The patient's father is gathering his family and deciding on withdrawing care. He feels that more aggressive measures will be futile and I am in agreement. The patient has been under his care for a number of years and he has provided excellent care to the extreme where he had been sleeping next to the patient in order to keep her breathing at night. He has been a very dedicated father and therefore I believe his wishes are in her best interest. He is somewhat distraught over this decision, but he expresses he believes that this is what she would have wanted.
[2018-12-05] MEDS ORDERED: MORPHINE 4 MG/ML 1ML VIAL/SYRINGE (J2270) IV PRN (11:45)
[2018-12-05] MEDS ORDERED: LORazepam 2 MG/ML VIAL (J2060) IV PRN (11:45)
[2018-12-05] MEDS ORDERED: SCOPOLAMINE 1MG TRANSDERMAL PATCH TOP SCH (13:00)
[2018-12-06 00:20] VITALS: O2SAT 89
[2018-12-06 04:20] VITALS: O2SAT 88
[2018-12-06] MEDS: SODIUM CHLORIDE 0.9% INJ 10 ML SYR IV SCH ×2 (06:26→18:00)
[2018-12-06] MEDS: NYSTATIN 100,000 UNITS/GM TOPICAL PWD 15 GM TOP SCH ×2 (08:40→21:00)
--- NOTE | 2018-12-06 09:20 | CCN ---
DATE OF SERVICE: 12/06/2018 At bedside, I had a discussion with her father. The patient is barely maintaining tidal volumes at 200 on BiPap of 24/09. She is on 100% FIO2 with desaturation into the 80% range without any movement. With movement, there are actually more significant desaturations. She has no means of nutrition at this point in time. She is on comfort measures only. When her brother is able to get here, we will withdraw bilevel noninvasive therapy based on father's wishes. The patient did have a trial of intubation and mechanical ventilation, a trial of extubation, and was not able to support her own breathing. It does not appear that there is an acute infectious process going on now to prevent her from being compensated. I believe this is progression of her underlying disease. PHYSICAL EXAMINATION: General: The patient is sleeping on bilevel noninvasive therapy. She has a sinus tachycardia of 134. Temperature is 98.4. Respiratory rate ranges from 12 to 26. Oxygen saturation is 88% on 100% FIO2 on bilevel noninvasive therapy. HEENT: Sclerae clear and anicteric. Pupils equal round and reactive to light. Mucous membranes are moist. BiPap is in place. Lungs: Decreased breath sounds throughout, but no rales, rhonchi or wheezes. No dullness to percussion. Abdomen is soft, nontender, nondistended. No hepatosplenomegaly, masses or hernia. Extremities: There is significant edema, pedal in nature. No pretibial edema. The patient does appear overall comfortable. 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 IMPRESSION: 42-year-old female with history of chronic respiratory failure, failing bilevel noninvasive therapy, with severe hypoxia. The patient's father has tried a trial of mechanical ventilation, a trial of noninvasive ventilation and the patient continues to fail. He does not want to proceed to tracheostomy and orogastric (OG) tube as this would be very poor quality of life. We will continue to follow the father's wishes for the patient as he has been her measurement supervisor and advocate for many years.
--- NOTE | 2018-12-06 22:11 | DSES ---
DATE OF ADMISSION: 11/25/2018 DATE OF DISCHARGE: 12/06/2018 Eunice is a 42-year-old female well-known to me for a number of years who presented with acute on chronic hypoxic hypercarbic respiratory failure. Initially attributed to a virus. After a trial of mechanical ventilation, the patient was extubated was unable to tolerate bilevel and was not able to generate good tidal volumes despite increasing bilevel requirements. She was not able to be fed because she was on BiPAP, had aspirated during her earlier hospitalization while attempting to be fed while on BiPap therapy. After multiple discussions, the father came to the most difficult decision to remove care as her prognosis was extremely poor. She would have required extraordinary measures including tracheostomy, continuous mechanical ventilation and PEG tube placement for nutrition in order to be able to potentially survive this. He has already taken care of her for a number of years, sleeping at her bedside and making sure that her BiPap was on her at all times. He was a very dedicated father and it was quite a difficult decision for him to say it would be too extreme a burden on the patient even though he was willing to take care of whenever needed to be done. He felt the best decision for the patient was to withdraw care and have her pass comfortably. Within minutes of removal of the BiPAP she had stopped breathing and passed at 1948 hours with her family around her. DISCHARGE DIAGNOSIS 1. Acute on chronic respiratory failure, both hypoxemic and hypercapnic. 2. Cerebral palsy from history of anoxic brain injury. 3. History of supraventricular tachycardia (SVT). 4. Chronic decubitus ulcer, status post flap closure. 5. History of aspiration pneumonia. 6. Respiratory syncytial virus (RSV) virus. 7. Protein malnourishment. edited: 12/07/2018 [id number] HILDA
== END 2018-12-06 21:30 | disposition expired | DRG 167 ==
LOC: EDBD 10:06 → M ED 10:06 → M ED INP 15:13 → M ICU 16:10
PROVIDERS: ADMIT Internal Medicine; ATTEND Internal Medicine Pulmonary Disease
PROC: 0B9M8ZZ Drainage of Bilateral Lungs, Via Natural or Artificial Opening Endoscopic (ICD-10-PCS; principal; 2018-11-30)
PROC: 0BH17EZ Insertion of Endotracheal Airway into Trachea, Via Natural or Artificial Opening (ICD-10-PCS; 2018-11-30)
PROC: 5A1945Z Respiratory Ventilation, 24-96 Consecutive Hours (ICD-10-PCS; 2018-11-30)
PROC: 02HV33Z Insertion of Infusion Device into Superior Vena Cava, Percutaneous Approach (ICD-10-PCS; 2018-12-01)
DX: J96.21 Acute and chronic respiratory failure with hypoxia (principal); E46 Unspecified protein-calorie malnutrition; J98.11 Atelectasis; G93.40 Encephalopathy, unspecified; J96.22 Acute and chronic respiratory failure with hypercapnia; G80.9 Cerebral palsy, unspecified; K44.9 Diaphragmatic hernia without obstruction or gangrene; Z99.81 Dependence on supplemental oxygen; E88.09 Other disorders of plasma-protein metabolism, not elsewhere classified; G47.33 Obstructive sleep apnea (adult) (pediatric); F79 Unspecified intellectual disabilities; E87.5 Hyperkalemia; K59.00 Constipation, unspecified; R74.0 Nonspecific elevation of levels of transaminase and lactic acid dehydrogenase [LDH]; B97.4 Respiratory syncytial virus as the cause of diseases classified elsewhere; M21.371 Foot drop, right foot; M21.372 Foot drop, left foot; Z79.899 Other long term (current) drug therapy